=== PATIENT | female | born 1965 | race Caucasian/White ===

== ENCOUNTER 2018-11-16 18:51 | Inpatient (IN) | payer OTHER ==
[~2018-11-16] VITALS: Ht 170.2 cm; Wt 74.4 kg
[2018-11-16 21:32] LABS: BASOPHIL % 0.4 % (0-2); CALCIUM 7.9 mg/dL (8.5-10.1); CARBON DIOXIDE 26.7 mmol/L (21-32); CHLORIDE SERUM 97 mmol/L (98-107); CREATININE SERUM 0.8 mg/dL (0.6-1.0); GFR1 > 60 mL/min; GLUCOSE SERUM 77 mg/dL (74-106); PLATELET COUNT 199 x10^3mcL (130-400); POTASSIUM SERUM 4.3 mmol/L (3.5-5.1); SODIUM SERUM 133 mmol/L (136-145)
[2018-11-16 21:34] LABS: RED CELL DISTRIBUTION WIDTH 14.9 % (11.5-14.5)
[2018-11-16 21:36] LABS: ALBUMIN 3.7 g/dL (3.4-5.0); ALKALINE PHOSPHATASE 84 U/L (46-116); ALT/SGPT 20 U/L (14-59); AST/SGOT 19 U/L (15-37); BILIRUBIN TOTAL 0.14 mg/dL (0.20-1.00); TOTAL PROTEIN, SERUM 6.9 g/dL (6.4-8.2)
[2018-11-16 23:55] LABS: microscopic required? NO
[2018-11-17 00:03] LABS: urine erythrocyte NEGATIVE (NEGATIVE)
[2018-11-17] MEDS ORDERED: CARISOPRODOL350 MG PO (00:11)
[2018-11-17] MEDS ORDERED: ALPRAZOLAM0.5 M4 PO (00:12)
[2018-11-17] MEDS ORDERED: BACLOFEN5 MG PO (00:14)
[2018-11-17] MEDS ORDERED: SEROQUEL200 MG PO (00:21)
[2018-11-17] MEDS ORDERED: LEXAPRO20 MG PO (00:21)
[2018-11-17] MEDS ORDERED: METOPROLOL TART25 M1 PO (00:22)
[2018-11-17] MEDS ORDERED: AMBIEN5 MG PO (00:23)
[2018-11-17 00:48] VITALS: BP 116/64
[2018-11-17 00:55] VITALS: Ht 170.2 cm; Wt 74.4 kg
[2018-11-17 01:15] LABS: MAGNESIUM 1.8 mg/dL (1.8-2.4); PHOSPHOROUS 4.6 mg/dL (2.5-4.9)
[2018-11-17 01:35] LABS: CHOLESTEROL/HDL RATIO 5.7
[2018-11-17 06:27] VITALS: BP 102/62
[2018-11-17 06:53] LABS: BASOPHIL % 0.2 % (0-2); PLATELET COUNT 168 x10^3mcL (130-400)
[2018-11-17 07:28] LABS: CHLORIDE SERUM 101 mmol/L (98-107); CREATININE SERUM 0.7 mg/dL (0.6-1.0); GFR1 > 60 mL/min; GLUCOSE SERUM 73 mg/dL (74-106); MAGNESIUM 1.8 mg/dL (1.8-2.4); PHOSPHOROUS 3.9 mg/dL (2.5-4.9); SODIUM SERUM 132 mmol/L (136-145)
[2018-11-17 08:49] VITALS: BP 103/62
[2018-11-17 14:03] LABS: AMPHETAMINE QUAL UR NONE DETECTED (See below)
== END 2018-11-17 17:38 | disposition left against medical advice (07) | DRG 253 ==
LOC: ED 18:51 → DU 23:47
PROVIDERS: Emergency Medicine; ADMIT Internal Medicine
DX: K92.0 Hematemesis (principal); S09.8XXA Other specified injuries of head, initial encounter; E87.1 Hypo-osmolality and hyponatremia; Z86.74 Personal history of sudden cardiac arrest; F41.9 Anxiety disorder, unspecified; G47.00 Insomnia, unspecified; S52.592D Other fractures of lower end of left radius, subsequent encounter for closed fracture with routine healing; E78.5 Hyperlipidemia, unspecified; I10 Essential (primary) hypertension; K59.00 Constipation, unspecified; Z53.21 Procedure and treatment not carried out due to patient leaving prior to being seen by health care provider; D64.9 Anemia, unspecified; W01.0XXA Fall on same level from slipping, tripping and stumbling without subsequent striking against object, initial encounter; Y93.01 Activity, walking, marching and hiking; Z68.25 Body mass index [BMI] 25.0-25.9, adult; Z87.891 Personal history of nicotine dependence; Y92.018 Other place in single-family (private) house as the place of occurrence of the external cause; Y99.8 Other external cause status; Z90.49 Acquired absence of other specified parts of digestive tract; Z83.3 Family history of diabetes mellitus; Z82.49 Family history of ischemic heart disease and other diseases of the circulatory system
CPT/HCPCS: C9113; J2001; J2270; J7030; Q0092

== ENCOUNTER 2019-01-16 16:42 | Emergency (ER) | payer OTHER ==
[~2019-01-16] VITALS: Ht 170.2 cm; Wt 61.2 kg
[~2019-01-16 16:42] MED LIST: ALPRAZOLAM0.5 M4 PO; AMBIEN5 MG PO; BACLOFEN5 MG PO; CARISOPRODOL350 MG PO; LEXAPRO20 MG PO; METOPROLOL TART25 M1 PO; SEROQUEL200 MG PO
[2019-01-16 16:46] VITALS: Ht 170.2 cm; Wt 61.2 kg
[2019-01-16 17:34] LABS: BASOPHIL % 0.3 % (0-2); PLATELET COUNT 213 x10^3mcL (130-400); RED CELL DISTRIBUTION WIDTH 13.4 % (11.5-14.5)
[2019-01-16 17:41] LABS: CALCIUM 9.3 mg/dL (8.5-10.1); CARBON DIOXIDE 27.5 mmol/L (21-32); CHLORIDE SERUM 107 mmol/L (98-107); CREATININE SERUM 0.6 mg/dL (0.6-1.0); GFR1 > 60 mL/min; GLUCOSE SERUM 100 mg/dL (74-106); SODIUM SERUM 142 mmol/L (136-145)
[2019-01-16 17:46] LABS: ALBUMIN 3.7 g/dL (3.4-5.0); ALKALINE PHOSPHATASE 71 U/L (46-116); ALT/SGPT 29 U/L (14-59); AST/SGOT 13 U/L (15-37); BILIRUBIN TOTAL 0.14 mg/dL (0.20-1.00); LIPASE 327 IU/L (73-393); TOTAL PROTEIN, SERUM 6.7 g/dL (6.4-8.2)
[2019-01-16 18:40] VITALS: BP 120/75
== END 2019-01-16 19:59 | disposition home or self-care (01) ==
LOC: ED 16:42
PROVIDERS: Emergency Medicine
DX: R10.84 Generalized abdominal pain (principal); I10 Essential (primary) hypertension
CPT/HCPCS: J2270

== ENCOUNTER 2019-01-24 14:08 | Inpatient (IN) | payer OTHER ==
[~2019-01-24] VITALS: Ht 170.2 cm; Wt 66.0 kg
[2019-01-24 14:23] VITALS: Ht 170.2 cm; Wt 66.0 kg
--- NOTE | 2019-01-24 14:24 | NUR ---
PT BIBA TO ED FOR ALOC X3 WEEKS PER MOTHER AND HAS JUAN ACTING "ABNORMAL" X3 WEEKS. PER MEDIC PT LIVES AT HOME WITH MOTHER AND IS NOT AMBULATORY. PT DOES NOT STS SI OR HI AT THIS TIME. PT UNCOOPERATIVE AT THIS TIME, PLACED IN 4 POINT RESTRAINTS FOR SAFETY. PER PT SEEN TALKING TO SELF, YELLING "LEAVE ME ALONE! I DON'T WANT TO BE HERE!" PT CONNECTED TO FULL CM. MOTHER AT BEDSIDE.
--- NOTE | 2019-01-24 14:40 | NUR ---
ON ASSESSMENT BRUISES NOTED TO INSIDE OF LEFT UPPER ARM. BRUISES ALSO NOTED TO LEFT WRIST AND RIGHT FOREARM.
--- NOTE | 2019-01-24 14:42 | NUR ---
LAB AT BEDSIDE. PT AWAKE AND ALERT, CALM AND TALKING TO FAMILY AT BEDSIDE.
[2019-01-24 14:55] LABS: BASOPHIL % 0.4 % (0-2); PLATELET COUNT 253 x10^3mcL (130-400); RED CELL DISTRIBUTION WIDTH 12.7 % (11.5-14.5)
[2019-01-24 15:05] LABS: CALCIUM 9.3 mg/dL (8.5-10.1); CARBON DIOXIDE 25.7 mmol/L (21-32); CHLORIDE SERUM 104 mmol/L (98-107); CREATININE SERUM 0.7 mg/dL (0.6-1.0); GFR1 > 60 mL/min; GLUCOSE SERUM 106 mg/dL (74-106); POTASSIUM SERUM 3.6 mmol/L (3.5-5.1); SODIUM SERUM 140 mmol/L (136-145)
[2019-01-24 15:09] LABS: ALBUMIN 3.6 g/dL (3.4-5.0); ALKALINE PHOSPHATASE 96 U/L (46-116); ALT/SGPT 53 U/L (14-59); AST/SGOT 15 U/L (15-37); BILIRUBIN TOTAL 0.18 mg/dL (0.20-1.00); TOTAL PROTEIN, SERUM 7.4 g/dL (6.4-8.2)
--- NOTE | 2019-01-24 15:47 | NUR ---
SPOKE WITH PT COUSIN AND DAUGHTER. PER FAMILY PT HAS HAD AN OPIOID AND BENZODIAZAPINE ADDICTION X 30 YEARS AND HAS BEEN TO MANY DIFFERENT HOSPITALS IN THE LAST 30 DAYS. PER FAMILY PT IS "DETOXING FROM BENZOS AND OPIOIDS" X 1 MONTH AND HAS DONE SO UNDER NO MEDICAL SUPER VISION.
--- NOTE | 2019-01-24 17:44 | NUR ---
PT LAYING IN BED, AWAKE AND ALERT, PT ABLE TO HOLD CONVERSTION. PT STATES SHE "FEELS SO MUCH BETTER" AND DISCUSSED HER MEDICAL HISTORY. SHE REPORTS VISITING "A LOT OF HOSPITALS IN THE PAST" FOR SIEZURES AND STATES "I THINK I HAEVE THYROID CANCER BUT THE DOCTORS CANT FIGURE IT OUT AND THE INSURANCE COMPANIES GIVE THE RUN AROUND". PT IN FOUR POINT RESTRAINTS, PT HAS POSITIVE PULSES, COLOR, TEMPERATURE AND MOTION TO ALL FOUR EXTREMETIES.
--- NOTE | 2019-01-24 19:40 | NUR ---
MEDICATED PER EMAR. PT COOPERATIVE AT THIS TIME. MADE AWARE IF SHE REMAINS RELAXED AND COOPERATIVE THAT I WILL REMOVE THE RESTRAINTS. PT VERBALIZES UNDERSTANDING. WILL CONTINUE TO MONITOR. CURTAINS OPEN WIDE AND IN VIEW OF NURSING STATION. RESTRAINTS TO UPPER EXTREMITIES AND LEFT EXTREMITIES NOTED.
--- NOTE | 2019-01-24 20:11 | NUR ---
LEFT LOWER EXTREMITY RESTRAINT REMOVED. PT REMAINS COOPERATIVE AT THIS TIME. CURRENTLY RESTING WITH EYES CLOSED, RESPONDS TO VERBAL STIMULI. RESPIRATIONS EVEN AND UNLABORED. SAFETY PRECAUTIONS IN PLACE
--- NOTE | 2019-01-24 21:28 | NUR ---
PT REMOVED OFF OF ALL RESTRAINTS AT THIS TIME. REMAINS FREE FROM S/S OF DISTRESS, RESPIRATIONS EVEN AND UNLABORED. CURTAINS REMAIN OPEN AND PT IN VIEW OF NURSES STATION. SAFETY PRECAUTIONS IN PLACE
--- NOTE | 2019-01-24 22:32 | NUR ---
PT RESTING WITH EYES CLOSED, RESPONDS TO VERBAL STIMULI, RESPIRATIONS EVEN AND UNLABORED. SAFETY PRECAUTIONS IN PLACE
--- NOTE | 2019-01-24 23:22 | NUR ---
REPORT GIVEN TO STACY
--- NOTE | 2019-01-24 23:26 | NUR ---
PT RESTING AT BEDSIDE IN NAD. BREATHING E/U, BILATERAL CHEST RISE. BED AT LOWEST POSITION. CURTAINS DRAWN, PATIENT IN CLEAR VIEW OF NURSES AT STATION.
--- NOTE | 2019-01-25 01:49 | NUR ---
PT CONTINUES TO REST WITH EYES CLOSED, RESPIRATIONS EVEN AND UNLABORED. SAFETY PRECAUTIONS IN PLACE
--- NOTE | 2019-01-25 03:22 | NUR ---
STATUS REMAINS UNCHANGED. RESTING WITH EYES CLOSED. RESPIRATIONS EVEN AND UNLABORED. SAFETY PRECAUTIONS IN PLACE
--- NOTE | 2019-01-25 05:00 | NUR ---
PT AMBULATED TO AND FROM RESTROOM WITHOUT ANY ISSUES ENCOUNTERED. PT GIVEN MULTIPLE CUPS OF WATER. WILL CONTINUE TO MONITOR. SAFETY PRECAUTIONS IN PLACE
[2019-01-25 05:40] LABS: AMPHETAMINE QUAL UR NONE DETECTED (See below)
--- NOTE | 2019-01-25 06:34 | NUR ---
PT CONTINUES TO REST WITH EYES CLOSED. RESPIRATIONS EVEN AND UNLABORED. SAFETY PRECAUTIONS IN PLACE
--- NOTE | 2019-01-25 07:14 | NUR ---
REPORT GIVEN TO CELIA RN, ALL QUESTIONS AND CONCERNS WERE ADDRESSED.
--- NOTE | 2019-01-25 07:15 | NUR ---
RECEIVED AWAKE ALERT ORIENTED, ANSWERS QUESTIONS PROPERLY, COOPERATIVE,C/O GENERALIZED BODY ACHES AND STATED UNABLE TO MOVE EXTREMITIES WHILE MOVING EXTREMITIES,,DENIES SUICIDAL IDEATION,DENIES TAKING ANY DRUGS SINCE 4 MONTHS, FEELS HUNGRY,
--- NOTE | 2019-01-25 07:40 | NUR ---
HAD HER BREAKFAST AND TOLERATED DR AGUIAR BESIDES ANSWERING HER QUESTIONS AND PLAN OF TREATMENT INCLUDING TEL.PSYCH,,UNHAPPY INSISTING THAT SHE HAS PHYSICAL DISEASE NOT MENTALLY, PT MOVES ALL EXTREMITIES,
--- NOTE | 2019-01-25 09:21 | NUR ---
INTERVIEWD BY PSYCHAITRIST VIA TEL,COM, ANXIOUS RESTLESS MEDICATED WITH ZYPREXIA AND ATIVAN
--- NOTE | 2019-01-25 10:08 | NUR ---
PT STATED SHE WANTS TO VOMIT , WHEN BASIN GIVEN SHE THREW IT AWAY AND ASKING FOR RELAXING MEDS, MEDICATED
--- NOTE | 2019-01-25 13:09 | NUR ---
FULL OF COMPLAINTS, HAD HER LUNCH AND TOLERATED, WALKING STEADY,STATED NOTHING HELPS NEED 2 TABS LITTLE,DR AGUIAR SPOKE TO PT MULTIPLE TIMES
--- NOTE | 2019-01-25 14:27 | NUR ---
PT RESTLESS, CONTINUES TO GET OUT OF BED. PT ESCORTED TO RESTROOM BY SECURITY. PT RETURNED BACK TO ROOM AT THIS TIME.
--- NOTE | 2019-01-25 15:02 | NUR ---
PT AWAKE ALERT, RESP E/U, NO DISTRESS. REMAINS VERY TALKATIVE.
--- NOTE | 2019-01-25 15:58 | NUR ---
PT READJUSTED IN BED FOR COMFORT. PT IN RIGHT LATERAL POSITION AT THIS TIME, RESP E/U, NO DISTRESS.
--- NOTE | 2019-01-25 16:48 | NUR ---
PT SEEN WITH EVEN CHEST RISE AND FALL; NO DISTRESS. DAUGHTER AND MD AT BEDSIDE AT THIS DISCUSSING PT'S POC.
--- NOTE | 2019-01-25 17:40 | NUR ---
PT IN GURNEY IN POSITION OF COMOFRT, RESP E/U, NO PAIN NOTED.
--- NOTE | 2019-01-25 18:42 | NUR ---
PT IN LEFT LATERAL POSITION, RESP E/U, NO DISTRESS. IN VIEW OF NURSES STATION.
--- NOTE | 2019-01-25 19:18 | NUR ---
REPORT GIVEN TO TRACIE PITTMAN TO ASSUME CARE.
--- NOTE | 2019-01-25 20:16 | NUR ---
PT LYING ON RT SIDE WITH EYES CLOSED WITH NO SIGNS OF DISTRESS AT THIS TIME.
--- NOTE | 2019-01-25 21:13 | NUR ---
PT'S MOTHER AT BEDSIDE. PT CALM AND COOPERATIVE WITH CARE. PT REFUSED AMBIEN AT THIS TIME.
--- NOTE | 2019-01-25 23:32 | NUR ---
PT RESTING IN BED WITH EYES CLOSED, BREATHS EVEN AND UNLABORED WITH NO SIGNS OF DISTRESS AT THIS TIME.
--- NOTE | 2019-01-26 01:10 | NUR ---
PT RESTING WITH EYES CLOSED WITH NO SIGNS OF DISTRESS AT THIS TIME.
--- NOTE | 2019-01-26 01:35 | NUR ---
REPORT RECIEVED FROM SUNDAR HODGES TO ASSUME PT CARE. PT RESTING IN A POSITION OF COMFORT AT THIS TIME, RESP EVEN AND UNLABORED, CHEST RISE AND FALL NOTED.
[2019-01-26 04:29] LABS: BASOPHIL % 0.5 % (0-2); PLATELET COUNT 225 x10^3mcL (130-400); RED CELL DISTRIBUTION WIDTH 12.4 % (11.5-14.5)
--- NOTE | 2019-01-26 04:33 | NUR ---
RECEIVED PT RESTING WITH EYES CLOSED, RESPIRATIONS EVEN AND UNLABORED. RESPONDS TO VERBAL STIMULI. SAFETY PRECAUTIONS IN PLACE
[2019-01-26 05:19] LABS: CALCIUM 9.1 mg/dL (8.5-10.1); CARBON DIOXIDE 24.5 mmol/L (21-32); CHLORIDE SERUM 107 mmol/L (98-107); CREATININE SERUM 0.6 mg/dL (0.6-1.0); GFR1 > 60 mL/min; GLUCOSE SERUM 95 mg/dL (74-106); MAGNESIUM 1.9 mg/dL (1.8-2.4); POTASSIUM SERUM 3.9 mmol/L (3.5-5.1); SODIUM SERUM 143 mmol/L (136-145)
--- NOTE | 2019-01-26 05:23 | NUR ---
will endorsed to in coming shift to continue to look for placement .
--- NOTE | 2019-01-26 06:24 | NUR ---
RESTING WITH EYES CLOSED, RESPIRATIONS EVEN AND UNLABORED. SAFETY PRECAUTIONS IN PLACE
--- NOTE | 2019-01-26 07:18 | NUR ---
AT BEDSIDE PT IS AAOX4, RESPS E/U, PT DENIES PAIN, PT CALM AND COOPERATIVE WHILE EATING BREAKFAST.
--- NOTE | 2019-01-26 08:27 | NUR ---
PT RESTING IN POSITION OF COMFORT. PT ATE 100% OF BREAKFAST. PT CALM AND COOPERATIVE.
--- NOTE | 2019-01-26 09:25 | NUR ---
PT MEDICATED PER MD ORDERS. PT CRYING BUT EASILY DISTRACTABLE. STS "I DONT WANT TO BE HERE" PT CALMED DOWN, AND STOPPED CRYING. PT AMBULATED TO RESTROOM WITH STEADY GAIT. I ACCOMPANIED PT FOR SAFETEY. PT BACK IN BED IN POSITION OF COMFORT. PT IN DIRECT VIEW OF NURSES STATION.
--- NOTE | 2019-01-26 10:21 | NUR ---
PT SLEEPING, EASILY AROUSABLE, BED IN LOWEST POSITION. PT IN DIRECT VIEW OF NURSES STATION.
--- NOTE | 2019-01-26 11:27 | NUR ---
PT WOKE UP AND REQUESTED TO GO TO RESTROOM. I ACCOMPANIED PT. PT CALM AND COOPERATIVE. PT AMBULATED WITH STEADY GAIT AND NO ASSIST. PT BACK IN BED RESTING IN A POSITION OF COMFORT.
--- NOTE | 2019-01-26 11:57 | NUR ---
PT'S COUSIN IS AT BEDSIDE. DR. AGUIAR AT BEDSIDE WELL. DR. AGUIAR UPDATING FAMILY MEMEBER.
--- NOTE | 2019-01-26 11:58 | NUR ---
SPOKE TO DENNIS FROM [facility]
--- NOTE | 2019-01-26 13:39 | NUR ---
PT RESTING IN POSITION OF COMFORT. PT'S COUSIN AT BEDSIDE. BOTH ARE WATCHING A MOVIE. PT CALM AND COOPERATIVE. PT IS AAOX4, RESPS E/U SKIN IS PINK, WARM AND DRY.
--- NOTE | 2019-01-26 13:54 | NUR ---
PT Massiel/AX4 SPEAKING IN CLEAR SENTENCES, SISTER AT BEDSIDE
--- NOTE | 2019-01-26 14:25 | NUR ---
REPORT GIVEN TO DOMINIC FROM MED [facility] TO ASSUME CARE FOR PT.
--- NOTE | 2019-01-26 14:41 | NUR ---
PER PT "I DON'T TAKE ANY MEDS REGULARLY"
[2019-01-26 15:53] VITALS: BP 123/75
--- NOTE | 2019-01-26 16:21 | NUR ---
AT 1505 - RECEIVED PATIENT FROM ER NURSE. SETTLED IN ROOM, ORIENTED TO SURROUNDINGS. PATIENT ADMITTED WITH ALOC, ON 5150 HOLD. PATIENT IS AWAKE, ALERT AND ORIENTED TO PERSON, PLACE AND TIME. HISTORY OBTAINED FROM PATIENT AND PATIENT'S COUSIN WHO IS AT BEDSIDE. INITIAL ASSESSMENT COMPLETED. PATIENT C/O GENERALZIED BODY PAIN. AT 1540 - MEDICATED WITH TYLANOL PER EMAR. PATIENT IN ROOM WITH 1:1 SITTER. WATCHING MUSIC VIDEO ON TABLET.
[2019-01-26 16:45] VITALS: BP 120/72
--- NOTE | 2019-01-26 18:09 | NUR ---
PATIENT APPEARS CALM. C/O PERSISTANT PAIN. HAS NOW RECEIVED SOMA SCHEDULED. AMBULATES TO BATHROOM FOR TOILET NEEDS. 1:1 SITTER IN ROOM WITH PATIENT. WILL ENDORSE CARE TO NIGHT NURSE.
--- NOTE | 2019-01-26 19:30 | NUR ---
RECEIVED PT IN BED AAOX3.LUNG SOUND CTA. NO DISTRESS NOTED.DENIES ANY PAIN AT THIS TIME.IV SITE PATENT AND INTACT. BED IN LWOEST POSITION,CALL LIGHT WITHIN REACH.SITTER AT BEDSIDE FOR SAFETY.
[2019-01-26 21:09] VITALS: BP 108/67
--- NOTE | 2019-01-26 21:13 | NUR ---
Pt needs re evaluation for 5150.will awaiting for the new 5150 to be faxed in order to find palcement , Kassandra HODGES aware.
--- NOTE | 2019-01-27 04:57 | NUR ---
PT APPEARS TO BE SLEEPING.NO SOB NOTED. NO S/S OF PAIN. SITTER AT BEDSIDE FOR SAFETY. BED IN LOWEST POSITION,CALL LIGHT WITHIN REACH. WILL CONTINUE TO MONITOR.
[2019-01-27 05:55] VITALS: BP 104/65
--- NOTE | 2019-01-27 07:14 | NUR ---
CARE ENDORSED TO DAY NURSE
--- NOTE | 2019-01-27 07:22 | NUR ---
RECEIVED REPORT FROM DISTRICT WILDLIFE MANAGER NURSE AT THIS TIME. PATIENT RESTING COMFORTABLY IN BED. NO APPARENT DISTRESS OR DISCOMFORT NOTED. BREATHING EVEN AND UNLABORED. NO RESPIRATORY DISTRESS NOTED. PATIENT DENIES CHEST PAIN AT THIS TIME. IV PATENT AND INTACT. ALL QUESTIONS AND CONCERNS ADDRESSED. ALL NEEDS ATTENDED TO. SITTER AT BEDSIDE TO PROMOTE PATIENT SAFETY. WILL CONTINUE TO MONITOR
--- NOTE | 2019-01-27 09:41 | NUR ---
ALL MORNING MEDICATIONS ADMINISTERED. PATIENT TOLERATED MEDICATIONS WELL. NO APPARENT DISTRESS NOTED. NO ADVERSE EFFECTS NOTED. ALL NEEDS ATTENDED TO. WILL CONTINUE TO MONITOR
[2019-01-27 10:48] VITALS: BP 115/56
--- NOTE | 2019-01-27 12:07 | NUR ---
PATIENT C/O GENERALIZED BODY ACHE AT THIS TIME. TYLENOL PRN ADMINSITERED AT THIS TIME. PATIENT TOLERATED WELL. ALL NEEDS ATTENDED TO. WILL CONTINUE TO MONITOR
--- NOTE | 2019-01-27 13:25 | NUR ---
PATIENT SITTING UP IN BED EATING LUNCH AT THIS TIME. PATIENT TOLERATING DIET WELL. NO APPARENT DISTRESS OR DISCOMFORT NOTED. ALL NEEDS ATTENDED TO. SITTER AT BEDSIDE TO PROMOTE PATIENT SAFETY. WILL CONTINUE TO MONITOR
--- NOTE | 2019-01-27 14:12 | NUR ---
Contacted the following facilities, no beds available and no eta: [facility]
[2019-01-27 17:19] VITALS: BP 102/72
--- NOTE | 2019-01-27 17:59 | NUR ---
PATIENT SITTING UP ON SIDE OF BED EATING DINNER AT THIS TIME. PATIENT TOLERATING DIET WELL. VISITOR AT BEDSIDE. NO APPARENT DISTRESS OR DISCOMFORT NOTED. ALL NEEDS ATTENDED TO. WILL CONTINUE TO MONITOR
--- NOTE | 2019-01-27 18:51 | NUR ---
PATIENT RESTING COMFORTABLY IN BED AT THIS TIME. NO APPARENT DISTRESS OR DISCOMFORT NOTED. IV PATENT AND INTACT. ALL QUESTIONS AND CONCERNS ADDRESSED. SAFETY PRECAUTIONS MAINTAINED. ALL NEEDS ATTENDED TO. SITTER AT BEDSIDE TO PROMOTE PATIENT SAFETY. WILL ENDORSE ALL CARE TO TURNER AND FORMER AUTOMATIC NURSE
--- NOTE | 2019-01-27 20:07 | NUR ---
Awake and verbally responsive. No respiratory distress noted on room air. Denies pain. Denies n/v. On 5150 hold. sitter at the bedside. Safety maintained. CAlm at this time. Dangled.
[2019-01-27 21:23] VITALS: BP 112/76
--- NOTE | 2019-01-28 04:20 | NUR ---
Afebrile. No significant change in condition noted. Remained on 5150 hold. In no apparent distress.
--- NOTE | 2019-01-28 07:40 | NUR ---
PATIENT STATED THAT SHE DOES NOT NEED TO BE WATCHED AND STARTED TO READ ALL OF HER NOTES REGUARDING HER MEDICAL PROBLEM, SHE SAID SHE HAS EPILEPSY, ALOC, LOW THYROID, SHE HAS TO TAKE CARE OF HER DISABILITY, SHE DOES NOT NEED 5150. REORIENTED TO SITUATION. PLAN OF CARE DISCUSSED. REGULAR BREAKFAST PROVIDED. SITTER 1:1 AT BEDSIDE FOR 5150HOLD. REFUSED IV ACCESS. CALL LIGHT PLACED WITHIN EASY REACH. SIDERAILS UP X2.
--- NOTE | 2019-01-28 09:19 | NUR ---
Recieved call from Miles at [facility]. They had a bed for the patient, but cannot take the patient after all. Per Miles, the patient is on the medical floor and it would be an EMTALA violation. Also they would not get paid by the insurance due to the violation. The bed has been canceled.
--- NOTE | 2019-01-28 10:00 | NUR ---
AGREED TO HAVE IV CATHETER INSERTION. IV CATHETER#22 ATTEMPTED X2 TO RFA WITH GOOD BLD RETURNED AND FLUSHED WELL.
--- NOTE | 2019-01-28 10:17 | NUR ---
ATIVAN 1MG IVP GIVEN FOR ANXIETY. STATED I JUST WANT TO BE ABLE TO SLEEP.
--- NOTE | 2019-01-28 13:12 | NUR ---
Intervention/RD recommendations 1. Continue regular diet as ordered and as tolerated. If PO intake <75% by following assessment, will add ONS for supplementation.
--- NOTE | 2019-01-28 13:12 | NUR ---
Initial Nutrition Assessment Dx: AMS, 5150, gravely disabled PMHx: HTN, questionable history of colon CA, MA per BROTHEL KEEPER, psychosis PSHx: Appendectomy Labs: (01/26) Na 143, K 3.9, BG 95, BUN 17, Cr 0.6, WBC 4.9, H/H 11L/32L Meds: Ambien, Ativan, Benadryl, Lioresal, Lopressor, Seroquel, Soma, Tylenol, Xanax, Zofran, Zyprexa Diet: Regular PO Intake: (01/28) B: 100% Ht: 67" (170 cm) Wt: 144# (65.7 kg) BMI: 22.7 (WNL) IBW: 135# %IBW: 107% UBW: unable to recall Age: 53 y/o female Food Allergies: NKFA Skin: Intact Robin: 21 Edema: None GI: Last BM x none since admission x1 day Per H&P, pt. admitted with agitation and gravely disabled with no other symptoms. Per family, pt. believes she has colon CA and seizures, but was worked up by other hospitals with no findings. Medically cleared, however, in-pt. psych placement continues to be pending at this time per bed huddle discussion. Pt. unable to answer some nutrition related questions. Tolerating diet without reported GI distress per RN notes and has good appetite. Denies recent weight loss at this time. No reported side effects from psychotropic medication regimen affecting appetite or nutritional status. T: Unintentional weight loss -10# x 1 month Problem with: No c/o N/V/D/C Problems with: Chewing: N Swallowing: N Current appetite: Excellent Recent wt change: None %wt change: N/A Vitamin/Supplement use: None Special diet at home: Regular Physical activity: None Education: No diet education provided during visit. Estimated Nutritional Needs Based on actual body weight 65.7 kg: Energy: 3233-6482 kcal/d (23-25 kcal/kg- adult maintenance) Protein: 66-78 g/d (1.0-1.2 g/kg)-maintenance and preservation of lean body mass Fluid: 7786-9358 ml/d (1 ml/kcal-fluid balance) or per doctor Nutrition Diagnosis 1.Predicted food-medication interaction r/t current medication regimen AEB pt. on multiple psychotropic medications that could potentially cause side effects negatively affecting nutritional status, including weight gain/loss, GI distress, and taste alterations. Intervention/RD recommendations 1. Continue regular diet as ordered and as tolerated. If PO intake <75% by following assessment, will add ONS for supplementation. Monitor/Evaluate Goal: PO intake at least 75% of estimated needs Monitor: PO intake, Labs, GI function, diet tolerance F/U in 7 days as low risk (4/3)
--- NOTE | 2019-01-28 13:30 | NUR ---
SEEN STANDING IN FRONT OF THE DOOR ATTEMPTED TO LEAVE THE ROOM STATED "I'M THE 4TH IN LINE FOR NEURO SURGEON I HAVE TO TALK TO CAPPER MACHINE OPERATOR SOMEBODY AT THE LOBBY TOLD ME THAT I'M THE 4TH IN THE LINE" NOTED FRUSTATED AND CRYING STATED " I'M NOT TRYING TO HURT MYSELF" REORITENTED TO SITUATION, EMOTIONAL SUPPORT GIVEN, PATIENT AGREED TO WALK BACK TO BED. SITTER 1:1 AT BEDSIDE.
--- NOTE | 2019-01-28 17:43 | NUR ---
APPEARS MORE CALM TALKING TO HER COUSIN AT BEDSIDE. NO ANY DISTRESS NOTED.
[2019-01-28 18:05] VITALS: BP 102/55
--- NOTE | 2019-01-28 19:32 | NUR ---
RECEIVED PT FROM PREVIOUS SHIFT. PT AWAKE/ALERT/ORIENTED. DENIES PAIN. DENIES SOB ON RA. IV PATENT TO RFA, SALINE LOCKED. SITTER AT BEDSIDE. CALL LIGHT WITHIN REACH, BED IN LOW POSITION. WILL CONTINUE TO MONITOR.
--- NOTE | 2019-01-28 19:43 | NUR ---
Rollow up calls were made to the following contracted facilities for psych bed placement. [facility], spoke with Alicia. No beds available tonight. [facility], spoke with Ajith. No beds available tonight. [facility], spoke with Carlos. No beds available tonight. [facility], spoke with Lois. Packet was faxed at [facility] request. [facility] will call Call Center or [facility] if they can accommodate the patient. [facility], spoke with Alicia. No beds available tonight. Will call the unit when Call Center recieves any new information.
[2019-01-28 21:12] VITALS: BP 159/83
--- NOTE | 2019-01-28 21:45 | NUR ---
PT REFUSING MEDICATION UNTIL 2300.
--- NOTE | 2019-01-28 22:04 | NUR ---
PT STATES SHE WILL TAKE MEDICATIONS NOW INSTEAD OF AT 2300 PREVIOUSLY REQUESTED. PT MEDICATED AT THIS TIME. WILL CONTINUE TO MONITOR.
--- NOTE | 2019-01-28 23:53 | NUR ---
PT REQUESTING MANUEL. DR GILLESPIE D/C'D MANUEL TODAY. DR HARRELL MADE AWARE.
--- NOTE | 2019-01-29 02:24 | NUR ---
PT RESTING IN NO ACUTE DISTRESS. RR EVEN AND UNLABORED. CALL LIGHT WITHIN REACH, BED IN LOW POSITION. WILL CONTINUE TO MONITOR.
--- NOTE | 2019-01-29 03:41 | NUR ---
PT REQUESTING TYLENOL FOR BODY ACHES. TYLENOL PROVIDED PRN PER EMAR.
--- NOTE | 2019-01-29 04:28 | NUR ---
PT REQUESTING PAIN MEDICATION FOR CONTINUES BODY ACHES. DR HARRELL MADE AWARE. WILL OCNTINUE TO MONITOR.
--- NOTE | 2019-01-29 05:53 | NUR ---
NO ACUTE CHANGES THROUGHOUT SHIFT. PT RESTING IN NO DISTRESS. RR EVEN AND UNLABORED. WILL ENDORSE CARE TO ONCOMING SHIFT
[2019-01-29 06:06] VITALS: BP 106/69
--- NOTE | 2019-01-29 07:05 | NUR ---
SEEN IN BED RESTING WITH EYES CLOSED. BREATHING E/U ON ROOM AIR. NO ANY DISTRESS NOTED. ON 5150 HOLD, SITTER 1:1 AT BEDSIDE. S/L TO RFA INTACT. NOTED SIDERAILS UP X2, CALL LIGHT PLACED WITHIN EASY REACH.
[2019-01-29 08:57] LABS: BASOPHIL % 0.2 % (0-2); PLATELET COUNT 270 x10^3mcL (130-400); RED CELL DISTRIBUTION WIDTH 12.8 % (11.5-14.5)
[2019-01-29 09:08] VITALS: BP 103/69
--- NOTE | 2019-01-29 09:08 | NUR ---
SEEN WALKING ON THE HALLWAY ACCOMPANIED BY SITTER. NO ANY DISTRESS NOTED.
[2019-01-29 09:24] LABS: CALCIUM 9.1 mg/dL (8.5-10.1); CARBON DIOXIDE 27.9 mmol/L (21-32); CHLORIDE SERUM 107 mmol/L (98-107); CREATININE SERUM 0.7 mg/dL (0.6-1.0); GFR1 > 60 mL/min; GLUCOSE SERUM 105 mg/dL (74-106); POTASSIUM SERUM 4.1 mmol/L (3.5-5.1); SODIUM SERUM 143 mmol/L (136-145)
--- NOTE | 2019-01-29 12:00 | NUR ---
SEEN PATIENT CRYING STATED SHE IS NOT FEELING WELL, STATED THE ROOM IS SPINNING. V/S CHECKED STABLE. PATIENT STATED SHE PROBABLY NEEDS BLOOD TRANSFUSION. EMOTIONAL SUPPORT GIVEN, KEPT PATIENT COMFORTABLE. PATIENT REQUESTED ATIVAN FOR RELAXATION.
--- NOTE | 2019-01-29 12:39 | NUR ---
ATIVAN 1MG IVP GIVEN AT THIS TIME AFTER PATIENT FINISHED WITH HER LUNCH.
--- NOTE | 2019-01-29 14:00 | NUR ---
SEEN RESTING WITH EYES CLOSED. SITTER 1:1 AT BEDSIDE.
--- NOTE | 2019-01-29 14:29 | NUR ---
CALLED DOCTOR JOSE MIGUEL REGUARDING INCORRECT PATIENT'S DATE OF ON [address] (TELEPHONE# [phone]). SPOKE TO DOCTOR JOSE MIGUEL'S CENTER PUNCH OPERATOR STATED HE IS NOT IN THE OFFICE TODAY, LEFT MESSAGE. GERHARD CAMPOS MADE AWARE.
--- NOTE | 2019-01-29 14:53 | NUR ---
ASSISTED TO BATHROOM, VOIDED, ASSISTED BACK, PATIENT STARTED CRYING STATED SHE CAN NOT SEE STATED" ARE YOU SURE I DON'T NEED BLOOD TRANSFUSION" V/S CHECKED STABLE. TRACIE MARX AT BEDSIDE.
[2019-01-29 16:04] VITALS: BP 113/70
--- NOTE | 2019-01-29 16:40 | NUR ---
SEEN BY DOCTOR GILLESPIE AT BEDSIDE. PATIENT AND PATIENT'S DAUGHTER VERBALIZED UNDERSTANDING OF CURRENT SITUATION AND PLAN OF CARE.
--- NOTE | 2019-01-29 17:27 | NUR ---
DAUGHTER STILL AT BEDSIDE. PATIENT APPEARS CALM AND PLEASANT.
--- NOTE | 2019-01-29 18:49 | NUR ---
HAD BOWEL MOVEMENT X1, STATED HARD DARK STOOL. MILK OF MAGNESIA GIVEN.
--- NOTE | 2019-01-29 20:00 | NUR ---
RECEIVED PT IN BED, WITH SITTER AT THE BEDSIDE FOR SAFETY. ALERT AND ORIENTED, ABLE TO VERBALIZE NEEDS. PT REMAINS ON 5150 HOLD. DENIES HEADACHE/DIZZINESS. RESP. EVEN AND UNLABORED. ON ROOM AIR, NO ACUTE DISTRESS NOTED.AFEBRILE AND VITAL SIGNS STABLE. NO TELE, DENIES CP OR ANY DISCOMFORT AT THIS TIME. HL TO RFA, INTACT AND PATENT. VOIDING FREELY. AMBULATES. WILL CONTINUE TO MONITOR.
--- NOTE | 2019-01-30 01:03 | NUR ---
RESTLESS, APPEARS ANXIOUS, PT REQUESTING MED, MEDICATED WITH ATIVAN 1MG IV ORDERED.SITTER AT THE BEDSIDE FOR SAFETY. WILL CONTINUE TO MONITOR.
--- NOTE | 2019-01-30 03:58 | NUR ---
EYES CLOSED, APPEARS ASLEEP, EASILY AROUSABLE. RESP. EVEN AND UNLABORED. SITTER AT BEDSIDE FOR SAFETY. WILL CONTINUE TO MONITOR.
[2019-01-30 04:03] VITALS: BP 111/60
--- NOTE | 2019-01-30 06:11 | NUR ---
AFEBRILE AND VITAL SIGNS STABLE. RESP. EVEN AND UNLABORED. ON ROOM AIR, NO ACUTE DISTRESS NOTED. DOOZING OFF AND ON AT THIS TIME. REMAINS ON 5150 HOLD, SITTER AT THE BEDSIDE FOR SAFETY. NO COMPLAINTS NOTED AT THIS TIME. VOIDING FREELY. KEPT COMFORTABLE. WILL CONTINUE TO MONITOR.
--- NOTE | 2019-01-30 07:10 | NUR ---
RECEIVED PATIENT AWAKE AND ALERT AND ORIENTED WITH A SITTER AT THE BEDSIDE.HL ON THE RT FOREARM INTACT.
[2019-01-30 07:51] VITALS: BP 119/71
--- NOTE | 2019-01-30 09:00 | NUR ---
PATIENT SAYING THAT SHE'S TAKING THYROID MEDS.AND WANTS HER RESULTS OF HER T3 BE FAX FROM DR. THAPA'S OFFICE HER DOCTOR TO HERE. VICTORINO HENNESSY MADE AWARE.
--- NOTE | 2019-01-30 12:30 | NUR ---
ASKING MEDS. FOR ANXIETY AND ATIVAN GIVEN.
--- NOTE | 2019-01-30 13:12 | NUR ---
HER SISTER CALLED AND TRANSFER THE CALL TO HER SISTER.
--- NOTE | 2019-01-30 14:30 | NUR ---
REPORT GIVEN DONATO HODGES FOR CONTINUE CARE.
--- NOTE | 2019-01-30 15:10 | NUR ---
REPORT RECEIVED FROM
--- NOTE | 2019-01-30 15:45 | NUR ---
PT AWAKE AND ALERT. SITTING EDGE OF BED WITH HER NOTES. DAUGHTER IN ROOM WITH PATIENT. BREATH SOUNDS CLEAR NYLA, NO RESP DISTRESS NOTED. 02 SAT 98% ON RA AND HR 70/MIN. PT DENIES ANY PAIN. ANGIE WELL AND AMBULATORY. PT ABD SOFT WITH AUDIBLE BSX4 QUADS. PT STATED VOIDING WITHOUT PROBLEM. HL ON RT F/A, NO REDNESS NOTED. PT SHOWING NURSE NOTES ABOUT HER NEEDING HER THYROID CHECK, HER T3, T4, AND STATED CORRELATED WITH PROBLEM WITH HER THYROID. PT STATED DR THAPA CAME AND SAW HIM AND TOLD HIM ABOUT HER THYROID ISSUES. PT DENIES ANY PAIN AT THIS TIME. CALL LIGHT WITHIN REACHED. BED IN LOW POSITION AND LOCKED. PT HAS A SITTER , 5150 PATIENT.
--- NOTE | 2019-01-30 18:04 | NUR ---
PT DENIES AN PAIN. HL ON RT FA, FLUSHES WELL AND PATENT. DAUGHTER KARAN AT BEDSIDE VISITING AND VERY SUPPORTIVE. SITTER AT BEDSIDE. CALL LIGHT WITHIN REACHED.
--- NOTE | 2019-01-30 19:30 | NUR ---
RECIEVED PT SITTING UP IN BED. ALERT AND ORIENTED. ABLE TO VERBALIZE NEEDS. DENIES HEADACHE/DIZZINESS AT THIS TIME. ANXIOUS AT TIMES. PT REMAINS ON 5150 HOLD, SITTER AT BED SIDE FOR SAFETY. RR EVEN AND UNLABORED. NO ACUTE DISTRESS NOTED. HEP LOCK TO RIGHT FA, INTACT AND PATENT. AMBULATES WITH ASSISTANCE. NO COMPLAINTS NOTED AT THIS TIME. CALL LIGHT WITHIN REACH. WILL CONINTUE TO MONITOR.
[2019-01-30 21:31] VITALS: BP 122/75
--- NOTE | 2019-01-31 00:03 | NUR ---
Called [facility] [place] and spoke with patients RN, requested for renewed 5150 to be faxed over to continue the process of bed placement.
--- NOTE | 2019-01-31 01:07 | NUR ---
PT EYES CLOSED, APPEARS ASLEEP. EASILY AROUSABLE. SITTER AT BED SIDE FOR SAFETY. RR EVEN AND UNLABORED NO ACUTE DISTRESS. WILL CONTINUE TO MONITOR.
--- NOTE | 2019-01-31 02:35 | NUR ---
PT AWAKE, COMPLAINING OF NOT BEING ABLE TO GO BACK TO SLEEP. BENADRYL PO GIVEN, PER EMAR. CALL LIGHT WITHIN REACH. SITTER CONTINUES TO BE AT BESIDE FOR SAFETY. WILL CONTINUE TO MONITOR.
--- NOTE | 2019-01-31 05:20 | NUR ---
AFEBRILE AND VITAL SIGNS STABLE. RESP. EVEN AND UNLABORED. ON ROOM AIR, NO ACUTE DISTRESS NOTED. DUE MEDS GIVEN ORDERED, SOFÍA. WELL. REMAINS ON 5150 HOLD, SITTER AT THE BEDSIDE FOR SAFETY. NO COMPLAINTS NOTED AT THIS TIME. DENIES ANY DISCOMFORT. WILL CONTINUE TO MONITOR.
[2019-01-31 06:29] VITALS: BP 120/69
--- NOTE | 2019-01-31 07:30 | NUR ---
PT IS ALERT AND ORIENTED X 4. PLEASANT AND COOPERATIVE. HEPLOCK RIGHT FOREARM. 51/50 RENEWED. WITH 1:1 SITTER FOR SAFEY. AMBULATES. NOTED PT IS TALKATIVE. WILL MONITOR.
[2019-01-31 09:43] VITALS: BP 107/84
--- NOTE | 2019-01-31 09:55 | NUR ---
PT WAS VERY ANXIOUS AND CONCERNED ABOUT HERSELF, THAT SHE HAS THIS FOLLOWING PROBLEM AND DISEASES. SHE SAID SHE HAS SEIZURE PROBLEMS, SHE SAID SHE HAS PROBLEM WITH THYROID. SHE WANTED TO HAVE PRESCRIPTION OF THYROID, BLOATED BIG STOMACH. HER STOMACH SHOWED BIG BECAUSE SHE PAUSES IT UP AND TRIED TO HYPERVENTILATE. PT WAS TOLD TO RELAX AND BREATH SLOWLY AND DEEP. PT WAS MEDICATED WITH ATIVAN PO TO RELAX. WILL MONITOR.
--- NOTE | 2019-01-31 12:04 | NUR ---
RECEIVED THE PT FROM MASOUD MATT RN, PT IS ALERT AND ORIENTED. SITTER AT BEDSIDE. AMBULATE BY HER SELF. WILL CONTINUE TO MONITOR THE PT.
--- NOTE | 2019-01-31 14:31 | NUR ---
Contcated the follwoing facilities and no beds availablem no eta. [facility], [facility]
--- NOTE | 2019-01-31 15:04 | NUR ---
PT REPORT HER STOMECH IS DISTENTED. CALLED GERHARD GLEASON, NEW ORDER RECEIVED AND CARRIED OUT.
--- NOTE | 2019-01-31 18:28 | NUR ---
PT IS A/O X4, VERBAL RESPONSIVE, DENY ANY PAIN AT THIS MOMENT. DENY ANY RESPIRATORY DISTRESS, IV AT RIGHT FA, NO LEAKING, NO INFILTRATION, SITTER AT BEDSITE, ALL ADLS ASSIST,ALL NEED MET, CALL LIGHT IN REACH, WILL CONTINUE TO MONITOR.
--- NOTE | 2019-01-31 19:50 | NUR ---
SHIFT REASSESSMENT DONE.PATIENT ALERT AND ORIENTED.BREATHING EASY.AMBULATORY.SITTER AT BEDSIDE FOR SAFETY.MEDSUR PATIENT.NO EDEMA NOTED ON EXT.REPORT SAYS NEED AMBIEN TONIGHT.CALL LIGHT IN REACH.
--- NOTE | 2019-01-31 21:37 | NUR ---
ALL SCHEDULE MEDS GIVEN,ALSO PRN FOR SLEEP.DAUGHTER WA HERE EARLIER,SUPPORTIVE OF CARE.SITTER AT BEDSIDE FOR SAFETY.
[2019-01-31 21:47] VITALS: BP 135/82
--- NOTE | 2019-02-01 02:15 | NUR ---
PATIENT SOUND ASLEEP.SITTER AT BEDSIDE FOR SAFETY.
[2019-02-01 03:33] VITALS: BP 107/63
--- NOTE | 2019-02-01 04:32 | NUR ---
UP AND ABOUT BRP,VOIDING,NO BM REPORTED BY SITTER.EVEN HAD MOM YESTERDAY.
--- NOTE | 2019-02-01 06:14 | NUR ---
PATIENT C/O HEPLOCK HURTING,CHECKED AT ONCE.FLUSHES EASY,NO REDNESS.PATIENT SITTER AT BEDSIDE FOR SAFETY.WILL ENDORSE TO NEXT SHIFT.
--- NOTE | 2019-02-01 07:09 | NUR ---
RECEIVED PT FROM SHIFT NURSE A/OX4. APPEARS IN NO ACUTE DISTRESS. UNDER CLOSE OBSERVATION. HEPLOCK PATENT. SIDE RAILS UPX2 AND CALL LIGHT WITHIN REACH. WILL CONTINUE TO MONITOR.
--- NOTE | 2019-02-01 08:35 | NUR ---
PT C/O OF INDIGESTION. GAVE [place]LANTA ORDERED. WILL CONTINUE TO MONITOR.
--- NOTE | 2019-02-01 10:16 | NUR ---
PT EXPRESSED RELIEF OF INDIGESTION. CALL LIGHT WITHIN REACH. UNDER CLOSE OBSERVATION. WILL CONTINUE TO MONITOR.
--- NOTE | 2019-02-01 11:00 | NUR ---
PT WAS SEEN BY DR GILLESPIE AND NO LONGER ON 5150 HOLD.
--- NOTE | 2019-02-01 16:12 | NUR ---
PT STATED SHES FEELING ANXIOUS. GAVE ATIVAN ORDERED. WILL CONTINUE TO MONITOR.
[2019-02-01] MEDS ORDERED: NORCO1 TA2 PO (16:23)
[2019-02-01] MEDS ORDERED: XANAX0.5 MG PO (16:24)
[2019-02-01] MEDS ORDERED: BACLOFEN10 MG PO (16:25)
[2019-02-01] MEDS ORDERED: CARISOPRODOL350 MG PO (16:26)
[2019-02-01] MEDS ORDERED: LEXAPRO10 MG PO (16:28)
[2019-02-01] MEDS ORDERED: KEFLEX500 M1 PO (16:28)
[2019-02-01] MEDS ORDERED: METOPROLOL SUCC25 M2 PO (16:30)
[2019-02-01] MEDS ORDERED: POTASSIUM GLUC500 MG PO (16:30)
[2019-02-01] MEDS ORDERED: SEROQUEL100 MG PO (16:30)
[2019-02-01] MEDS ORDERED: ZANTAC 300300 MG PO (16:31)
[2019-02-01] MEDS ORDERED: AMBIEN5 MG PO (16:31)
[2019-02-01] MEDS ORDERED: STOOL SOFTENER250 M2 PO (16:32)
[2019-02-01] MEDS ORDERED: GENERLAC10 GM/15 M PO (16:33)
[2019-02-01] MEDS ORDERED: BENZTROPINE MESY1 MG PO (16:33)
[2019-02-01 16:50] VITALS: BP 111/72
--- NOTE | 2019-02-01 17:18 | NUR ---
PT SITTING ON EDGE OF BED TALKING WITH FAMILY MEMBER. NO ACUTE DISTRESS NOTED. CALL LIGHT WITHIN REACH. WILL CONTINUE TO MONITOR
--- NOTE | 2019-02-01 17:19 | NUR ---
PT WAS SEEN BY DR. GILLESPIE. NO LONGER ON 5150 HOLD.
--- NOTE | 2019-02-01 18:18 | NUR ---
PT SITTING ON BED EATING DINNER. NO ACUTE DISTRESS NOTED. FAMIY MEMBER AT BEDSIDE. HEPLOCK PATENT. CALL LIGHT WITHIN REACH. WILL BE ENDORSED.
--- NOTE | 2019-02-01 19:50 | NUR ---
PT. AWAKE, ALERT, ORIENTED X4. SITTING UP IN BED , MOTHER NOW AT BED SIDE. BREATH SOUNDS CLEAR THROUGHOUT LUNG RAZO, RESP. EVEN, UNLABORED. NO SOB NOTED. NO EDEMA NOTED TO EXTREMITIES. PEDAL PULSES STRONG BLE. ABD. SOFT AND FLAT, BOWEL SOUNDS ACTIVE. DENIES ABD. PAIN. IV SITE INTACT. CALL LIGHT WITHIN REACH.
--- NOTE | 2019-02-01 20:22 | NUR ---
PT. HAD SOME OF HER OWN HOME MEDICATION ON THE TABLE TOP, LEVOTHYROXINE, VITAMIN B12 INJECT VIAL AND ALSO IRON TAB. PT. STATED THAT SHE TOOK HER LEVOTHYROXINE TODAY AT 1600 TODAY. PT. STATED THAT THE NURSE FROM DAY SHIFT WAS NOT AWARE. PATIENT MADE AWARE THAT SHE SHOULD NOT TAKE ANY OF HER HOME MEDICATION BECAUSE THEY WERE NOT ORDERED BY THE DOCTOR, NOR WERE THEY VERIFIED BY PHARMACY. PT. ALSO MADE AWARE THAT AT TIMES, SOME MEDICATIONS MAY HAVE ALSO BEEN GIVEN BY THE NURSE , THUS SHE , THE PATIENT, WOULD BE TAKING A DOUBLE DOSE BY SELF MEDICATIN. ALL THREE BOTTLES OF MEDICATIONS TAKEN DOWN TO PHARMACY FOR STORAGE. PT.'S MOTHER MADE AWARE THAT NO NEW ORDERS FOR THE THREE MEDICATIONS WERE OBTAINED AT THIS TIME FROM THE DOCTOR.
[2019-02-01 20:33] VITALS: BP 107/70
--- NOTE | 2019-02-02 01:53 | NUR ---
PT. STATED THAT SHE CANNOT SLEEP. REQUESTING AMBIEN FOR SLEEP. DR. HARRELL MADE AWARE. PRN AMBIEN ORDERED AND GIVEN. WILL MONITOR.
--- NOTE | 2019-02-02 02:58 | NUR ---
Awaiting for call back from Aydee HODGES , to see if pt still meets criteria for psych placement.
--- NOTE | 2019-02-02 03:41 | NUR ---
Pt ariela no longer need to be placed at any [facility] facilities, per Aydee HODGES
--- NOTE | 2019-02-02 06:12 | NUR ---
PT. STILL ASLEEP AT THIS MOMENT. RECEIVED ONE TIME DOSE OF AMBIEN PER REQUEST.IV SITE INTACT. CALL LIGHT WITHIN REACH. WILL ENDORSE PT. CARE TO INCOMING NURSE.
[2019-02-02 06:16] VITALS: BP 121/64
--- NOTE | 2019-02-02 07:30 | NUR ---
RECEIVED PATIENT IN BED AWAKE ALERT ABLE TO VERBALIZE NEEDS WELL. PATIENT IS VERY TALKATIVE, REPEATS SELF FREQUENTLY. AMBUALATES AD GUILHERME. DENIES ANY PAINI OR DISCOMFORT. HL RT F/A FLUSHED WELL. WILL CONTINUE TO MONITOR.
[2019-02-02 08:33] VITALS: BP 115/67
[2019-02-02] MEDS ORDERED: LEXAPRO10 MG PO (11:42)
[2019-02-02] MEDS ORDERED: SEROQUEL100 MG PO (11:43)
[2019-02-02 12:08] VITALS: BP 115/67
[2019-02-02] MEDS ORDERED: ZYPREXA5 M1 PO (12:42)
--- NOTE | 2019-02-02 12:53 | NUR ---
PT BEING DISCHARGED TO HOME. AWAKE, ALERT, ORIENTED X4. NO S/S OF ACUTE DISTRESS. NO COMPLAINT OF PAIN. NO SOB ON ROOM AIR. CALM/COOPERATIVE. DISCHARGE EDUCATION PROVIDED TO PATIENT, INSTRUCTED TO FOLLOW UP WITH PCP WITHIN ONE WEEK. VERBALIZED UNDERSTANDING. HOME MEDS GIVEN BACK TO PATIENT. PRESCRIPTION PROVIDED TO PATIENT. IV REMOVED FROM RFA, CATHETER IN TACT. PRESSURE APPLIED. SITE WNL. NO TELE. NO CHEST PAIN. RESOURCES GIVEN TO PATIENT BY DIVER PUMPER BRI FOR OUTPATIENT PSYCH FACILITIES. PT VERBALIZED UNDERSTANDING. ACCOMPANIED BY MOTHER. AMBULATORY WITH FULL ROM, GAIT STEADY. BELONGINGS WITH PATIENT.
--- NOTE | 2019-02-02 13:17 | NUR ---
PT TAKEN TO DISCHARGE LOBBY BY [facility]. AMBULATORY WITH FULL ROM, GAIT STEADY. AWAKE, ALERT, ORIENTED X4. BELONGINGS WITH PATIENT. ACCOMPANIED BY MOTHER. PRESCRIPTION/HOME MEDS WITH PATIENT.
== END 2019-02-02 13:23 | disposition home or self-care (01) | DRG 751 ==
LOC: ED 14:08 → MU 01-25 11:50
PROVIDERS: Emergency Medicine; ADMIT Internal Medicine
DX: F29 Unspecified psychosis not due to a substance or known physiological condition (principal); F22 Delusional disorders; R56.9 Unspecified convulsions; Z86.74 Personal history of sudden cardiac arrest; I10 Essential (primary) hypertension; R45.87 Impulsiveness; R45.1 Restlessness and agitation; Z85.038 Personal history of other malignant neoplasm of large intestine; Z90.49 Acquired absence of other specified parts of digestive tract; Z73.6 Limitation of activities due to disability
CPT/HCPCS: G0480; J1200; J1630; J2060; J3486; Q0163

== ENCOUNTER 2019-10-11 22:23 | Inpatient (IN) | payer OTHER ==
[~2019-10-11] VITALS: Ht 170.2 cm; Wt 81.3 kg
[~2019-10-11 22:23] MED LIST changes: +BACLOFEN10 MG PO; +BENZTROPINE MESY1 MG PO; +GENERLAC10 GM/15 M PO; +KEFLEX500 M1 PO; +LEXAPRO10 MG PO; +METOPROLOL SUCC25 M2 PO; +NORCO1 TA2 PO; +POTASSIUM GLUC500 MG PO; +SEROQUEL100 MG PO; +STOOL SOFTENER250 M2 PO; +XANAX0.5 MG PO; +ZANTAC 300300 MG PO; +ZYPREXA5 M1 PO
--- NOTE | 2019-10-11 23:19 | NUR ---
LAB AT BEDSIDE
--- NOTE | 2019-10-11 23:44 | NUR ---
PT MEDICATED PER MD ORDERS. PT TOLERATED WELL. WILL CONTINUE TO MONITOR.
[2019-10-11 23:50] LABS: BASOPHIL % 0.1 % (0-2); PLATELET COUNT 214 x10^3mcL (130-400); RED CELL DISTRIBUTION WIDTH 14.7 % (11.5-14.5)
[2019-10-12] VITALS (7 sets, daily range): BP systolic 92–145; BP diastolic 56–85
[2019-10-12 00:07] LABS: CALCIUM 9.2 mg/dL (8.5-10.1); CARBON DIOXIDE 28.3 mmol/L (21-32); CHLORIDE SERUM 104 mmol/L (98-107); CREATININE SERUM 0.7 mg/dL (0.6-1.0); GFR1 > 60 mL/min; GLUCOSE SERUM 113 mg/dL (74-106); POTASSIUM SERUM 3.3 mmol/L (3.5-5.1); SODIUM SERUM 142 mmol/L (136-145)
[2019-10-12 00:21] LABS: FREE T4 0.71 ng/dL (0.76-1.46)
--- NOTE | 2019-10-12 00:40 | NUR ---
DR. MCDONOUGH AT BEDSIDE TO DISCUSS PLAN OF CARE.
--- NOTE | 2019-10-12 00:58 | NUR ---
ATTEMPTED TO HAVE PT SIT UP IN BED. PT STATED SHE WAS UNABLE TO SIT UP DUE TO BEING TOO WEAK.
--- NOTE | 2019-10-12 01:15 | NUR ---
EDUCATED PT THAT WE WOULD NEED URINE SAMPLE. PT STATES "WELL MAGDALENA BEEN GETTING INCONTINENT AND I CANT TELL WHEN I GO". PT ALSO STATES "I HAVE NO FEELING DOWN THERE". DR MCDONOUGH MADE AWARE.
--- NOTE | 2019-10-12 01:20 | NUR ---
ACCOMPANIED DR MCDONOUGH FOR RECTAL EXAM.
--- NOTE | 2019-10-12 01:22 | NUR ---
PER DR MCDONOUGH, PT HAS DECREASED RECTAL TONE BUT MAINTAINS SENSATION.
--- NOTE | 2019-10-12 01:34 | NUR ---
DR MCDONOUGH AT BEDSIDE FOR BLADDER SCAN. PER DR MCDONOUGH PT HAS APPROX [phone] CC OF URINE IN BLADDER AT THIS TIME.
[2019-10-12 02:24] LABS: microscopic required? NO
[2019-10-12 02:40] LABS: CHOLESTEROL/HDL RATIO 4.4; MAGNESIUM 1.7 mg/dL (1.8-2.4); PHOSPHOROUS 4.1 mg/dL (2.5-4.9)
--- NOTE | 2019-10-12 02:45 | NUR ---
REPORT GIVEN TO AYDEN HODGES AT EXT [id number]
[2019-10-12 02:54] LABS: UA SPECIFIC GRAVITY <=1.005 (1.005-1.035); urine erythrocyte NEGATIVE (NEGATIVE)
--- NOTE | 2019-10-12 03:00 | NUR ---
Pt. received via danuta with RN and tech acccompanying pt. from ER. Pt. family at bedside upon arrival to the floor. Pt. currently is awake and alert, oriented x4, able to make needs known, able to follow commands and has no c/o of H/a at this time. Pt. came in to the ER d/t pt. reported that she has been having difficulty urinating with retention and lost sensation in the vaginal and rectal area. Pt. admitted w/ weakness & backpain at this time. Pt. has had a h(x) of PTSD, mood disorder, spinal stenosis s/p anterior cervical fusion and discectomy at C5-6. Patient was also admitted here in January 2019, for unspecified psychosis and she was on 5150 hold. The patient, at that time, had extreme paranoia, extreme agitation, high anxiety and impulsive behavior, poor self-care, not showering, not eating. Pt. mentiioned she had cardiac arrest after complicated appendectomy at [facility]. Pt. 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 Pt. states that she ahs h(x) of becoming unconscious at stores when having migraines and the last time she remembered this happening was around 6 months ago. Pt. also states she has had quadruplets via C -Section and experienced blood bloss (10L) before (no correlation to either surgery was mentioned upon assessment). Pt. lung sounds are CTA bilateral upper lobes and diminshed to the BLL. Pt. has c/o of SOB, but is currenly anxious O2 Sat at 97% when VS were taken. Pt. has no c/o chest pain at this time and is a MS pt. Pt. bowel sounds active, pt. states that she has trouble feeling and tasting what she eats, but does not state having trouble eating. Just states "she never feels satisfied, full or hungry" when eating. Pt. denies any unexplained weight loss within the past 2-3 months. Pt. does not have trouble swallowing as per pt. Pt. Bowel sounds active in BUQ and hyperactive in the BLQ. Pulses are moderate to touch in both BUE and BLE. No edema noted in all extremities. Pt. skin warm to touch and good cap refill. Pt. is not ambulatory at this time, will place an air mattress before end of shift. Educated pt. on reason why we want to place air mattress. Pt. safety in check with call light placed within reach, pt. educated on when and how to use call light system, bed set at lowest position, will continue to monitor pt. at this time.
[2019-10-12 03:06] LABS: AMPHETAMINE QUAL UR NONE DETECTED (See below)
--- NOTE | 2019-10-12 03:06 | NUR ---
PT TRANSFERED TO TELE AT THIS TIME IN NAD. PT AND PARENT VERBALIZED UNDERSTANDING OF PLAN OF CARE. PT TRANSFERED VIA GURNEY WITH CHRIS EMT AND MYSELF. PT TRANSFERED TO TELE BED WITH ASSISTANCE BY TELE STAFF. AYDEN HODGES AT BEDSIDE TO ASSUME CARE OF PT. PT A&0X4, SPEAKING FULL CLEAR SENTENCES. PT BREATHING EVEN AND UNLABORED. PT MOTHER AT BEDSIDE.
--- NOTE | 2019-10-12 03:45 | NUR ---
Paged Dr. Zambrano to inform her that pt. requesting for her night doses of Trazadone, Serroquel, and Ambien since she didn't receive it downstairs when she came to the ER for her generalized weakness. Will continue to monitor pt.
--- NOTE | 2019-10-12 04:38 | NUR ---
Pt. was able to take the Medications that were scheduled for the night dose at this time with no issue, will continue to monitor pt. at this time.
--- NOTE | 2019-10-12 05:33 | NUR ---
Pt. currently resting in bed at this time. Pt. has no c/o of c/p, sob, pain, or discomfort at this time. Pt. meds that she said she takes at night was ordered and given as prescribed by . otherwise, pt. stable, safety in check with call light placed within reach, pt. educated on when and how to use call light system, bed set at lowest position, will continue to monitor pt. at this time and endorse to next shift RN.
[2019-10-12 07:21] LABS: BASOPHIL % 0.3 % (0-2); PLATELET COUNT 182 x10^3mcL (130-400); RED CELL DISTRIBUTION WIDTH 14.8 % (11.5-14.5)
[2019-10-12 07:29] LABS: CALCIUM 8.6 mg/dL (8.5-10.1); CARBON DIOXIDE 26.2 mmol/L (21-32); CHLORIDE SERUM 108 mmol/L (98-107); CREATININE SERUM 0.8 mg/dL (0.6-1.0); GFR1 > 60 mL/min; GLUCOSE SERUM 104 mg/dL (74-106); MAGNESIUM 1.9 mg/dL (1.8-2.4); PHOSPHOROUS 4.1 mg/dL (2.5-4.9); POTASSIUM SERUM 3.8 mmol/L (3.5-5.1); SODIUM SERUM 143 mmol/L (136-145)
--- NOTE | 2019-10-12 07:50 | NUR ---
RECEIVED PT FROM TRUST CLERK RN. Massiel/JEANNIE. MED SURG. DENIES CHEST PAIN/PRESSURE. RESPIRATIONS EQUAL AND UNLABORED RA. DENIES SOB AT THIS TIME. PT STATES SHE HAS EPISODES OF SOB WHEN ANXIOUS. PT C/O OF GENERALIZED WEAKNESS AND NUMBNESS FROM NECK DOWN TO LEGS. PT STATES SENSATION TO BOTH HAND AND LEGS ARE EQUAL. ABLE TO FOLLOW COMMANDS. HAND DOG GROOMER STRONG BILATERALLY. PT C/O FEELING IF SHES FLOATING AND HER BODY IS FLOATING. FAMILY AT BEDSIDE. WILL CONTINUE TO MONITOR. CALL LIGHT IN REACH. BED IN LOWEST POSITION.
--- NOTE | 2019-10-12 08:24 | NUR ---
CHASTITY FROM CT AT BEDSIDE, TAKING PT OFF FLOOR FOR CT OF LUMBAR SPINE.
--- NOTE | 2019-10-12 09:28 | NUR ---
PT BACK FOR CT. PT STATES SHE FEELS MORE WEAK THAN WHEN SHE CAME INTO THE HOSPITAL. PT STATES "IT FEELS LIKE MY BODY IS FLOATING. I FEEL LIKE I HAVE LESS SENSATION IN MY HANDS THAN NORMAL." GIVEN PO MEDS. TOLERATED WELL. IV SALINE LOCKED TO RAC. NO REDNESS OR SWELLING NOTED. MOM AT BEDSIDE. WILL CONTINUE TO MONITOR. CALL LIGHT IN REACH. BED IN LOWEST POSITION.
--- NOTE | 2019-10-12 09:45 | NUR ---
CALLED SOC TELE NEURO. TELE NEURO CONSULT WAS INITIATED. ALL QUESTIONS AND CONCERNS ADDRESSED. LOPEZ MODEL IN ROOM WITH PT. TEST FOR CAMERA, SOUNDS, MICROPHONE DONE AND PASSED. AWAITING CALL BACK.
--- NOTE | 2019-10-12 10:36 | NUR ---
RECEIVED CALL FROM DR. RUVALCABA FROM TELE NEURO CONSULT. DR. RUVALCABA GIVEN RESULTS FROM PT CT OF CERVAL SPINE AND CT LUMBAR SPINE WELL CT OF HEAD. DR. RUVALCABA MADE AWARE OF PT MEDICAL HISTORY INCLUDING RECENT CERVICAL SURGERY. DR. RUVALCABA ALSO MADE AWARE PT RECENTLY HAD AN MRI OUTPATIENT. PER DR. RUVALCABA WILL LEAVE RECOMMMENDATIONS IN PT, AND WILL WAIT TO BE UPDATED ON PT RESULTS FROM MRI. DR. TY MADE AWARE. PER DR. TY MEDICAL STUDENT IS OBTAINING INFORMATION FROM PT TO OBTAIN MRI RESULTS.
--- NOTE | 2019-10-12 11:26 | NUR ---
PAGED DR. TY TO CLARIFY ORDER TO OBTAIN MEDICAL RECORDERS FROM DR. GUILLEN. AWAITING CALL BACK.
--- NOTE | 2019-10-12 13:10 | NUR ---
PT C/O WORSENING TO WEAKNESS. PT STATES "I CANT FEEL MY HANDS ANYMORE. I CANT EVEN HOLD ANYTHING." PT WAS ABLE TO GRAB CUP OF TEA. PT STATES "I'M SCARED ITS GETTING WORSE." PT ASKING TO HAVE ATIVAN. PAGED DR. TY. INFORMED DR. TY OT IS C/O WORSENING NUMBNESS AND WEAKNESS. PER DR. TY WILL AWAITING MRI RESULTS. PER DR. TY PT IS RECEIVING HOME MEDICATION OF XANAX. WILL CONTINUE TO MONITOR. CALL LIGHT IN REACH. BED IN LOWEST POSITION.
--- NOTE | 2019-10-12 16:32 | NUR ---
PHYSICAL THERAPY NOTE PATIENT REFUSED EVAL AND TREATMENT TODAY. PATIENT EDUCATED WITH BENEFITS FOR TREATMENT TO INCREASE OVERALL FUNCTIONAL MOBILITY. MOTHER PRESENT AND ALSO EDUCATED WITH BENEFITS. UNABLE TO ENCOURAGE. "I AM TOO WEAK AND NUMB. I CAN WALK OR EVEN HOLD A CUP." PATIENT HAS INCREASE ANXIETY. PATIENT HAS OBSERVED BY NURSING HOLDING A CUP AND LEAD HANDLER ASSISTED PATIENT TO AMBULATE TO BATHROOM WITHOUT AD. PATIENT REQUEST TO SEE MD PRIOR TO ANY THERAPY. WILL ATTEMPT TREATMENT AND EVAL NEXT VISIT. NURSING AWARE.
--- NOTE | 2019-10-12 19:35 | NUR ---
RECEIVED PT FROM DAY SHIFT RN. PT AAOX4, DENIES ELLIS/DIZZINESS. BREATHING EVEN AND UNLABORED ON RA WITH NO SOB NOTED. NECK BRACE IN PLACE. PT REPORTS UNABLE TO LIFT CUP WHILE HOLDING CUP IN HAND. IV RAC. PT UNCOOPERATIVE WITH ASSESMENT AT THIS TIME. MOTHER AT BEDSIDE. CALL BUTTON WITHIN REACH. SAFETY PRECAUTIONS IN PLACE. WILL CONTINUE TO MONITOR.
--- NOTE | 2019-10-13 03:21 | NUR ---
ROUNDS MADE. PT RESTING. NO SIGNS OF ACUTE DISTRESS NOTED. CALL BUTTON WITHIN REACH. SAFETY PRECAUTIONS IN PLACE. WILL CONTINUE TO MONITOR.
[2019-10-13 05:29] VITALS: BP 108/64
[2019-10-13 06:34] LABS: BASOPHIL % 0.3 % (0-2); PLATELET COUNT 193 x10^3mcL (130-400)
--- NOTE | 2019-10-13 06:35 | NUR ---
PT SLEPT MOST OF THE NIGHT WITH NO SIGNS OF DISTRESS. IV PATENT, SL. PT AMBULATORY WITH BRP. PT ON RA WITH NO SOB NOTED. PT MEDICATED PER EMAR. MOTHER AT BEDSIDE. CALL BUTTON WITHIN REACH. SAFETY PRECAUTIONS IN PLACE. WILL CONTINUE TO MONITOR AND ENDORSE CARE TO DAY SHIFT RN.
[2019-10-13 06:40] LABS: RED CELL DISTRIBUTION WIDTH 14.6 % (11.5-14.5)
[2019-10-13 06:58] LABS: CALCIUM 8.9 mg/dL (8.5-10.1); CHLORIDE SERUM 107 mmol/L (98-107); CREATININE SERUM 0.7 mg/dL (0.6-1.0); GFR1 > 60 mL/min; GLUCOSE SERUM 98 mg/dL (74-106); MAGNESIUM 1.8 mg/dL (1.8-2.4); PHOSPHOROUS 4.2 mg/dL (2.5-4.9); POTASSIUM SERUM 4.2 mmol/L (3.5-5.1); SODIUM SERUM 143 mmol/L (136-145)
--- NOTE | 2019-10-13 07:31 | NUR ---
PT RESTING. NO SIGNS OF DISTRESS NOTED. CALL BUTTON WITHIN REACH. SAFETY PRECAUTIONS IN PLACE. ENDORSED CARE TO DAY SHIFT RN, ALL QUESTIONS ADDRESSED.
--- NOTE | 2019-10-13 07:50 | NUR ---
RECEIVED PT FROM NETWORK SYSTEMS ADMINISTRATOR RN. PT SLEEPING COMFORTABLY. EASILY AROUSABLE. A/OX4. PT STATES "I CANT FEEL ANYTHING. I FEEL LIKE MY NECK IS FLOATING. IT JUST KEEPS GETTING WORSE." PT STATES "I CANT HOLD ANYTHING ANYMORE." PT ABLE TO HOLD CUP IN HER HAND. NO ACUTE RESP DISTRESS NOTED. PT HAS EPISODES OF ANXIETY. ENCOURAGED DEEP BREATHING AND RELAXATION TECHNIQUES. MOTHER AT BEDSIDE. NECK BRACE IN PLACE. WILL CONTINUE TO MONITOR. CALL LIGHT IN REACH. BED IN LOWEST POSITION.
[2019-10-13 08:36] VITALS: BP 119/79
--- NOTE | 2019-10-13 09:07 | NUR ---
PT CRYING HYSTERICALLY. PT EXHIBITING LABORED SHALLOW BREATHING. ENCOURAGED PT TO TAKE DEEP SLOW BREATHS. PT STATES "ITS JUST GETTING WORSE, SINCE MAGDALENA BEEN HERE EVERYTHING HAS JUST GOTTEN WORSE." PT STATES "I CANT EVEN PICK ANYTHING UP." PT HOLDING GLASS SHES STATING SHE CANT GRAB ANYTHING. PT ASKING FOR ANXIETY MEDICATION. MEDICATED PER EMAR. MOM AT BEDSIDE. EXPLAINED TO PT TIAGO LINING CUTTER IS AWARE OF PT CONCERNS AND WILL DISCUSS TEST RESULTS AND PLAN OF CARE WITH THE PT. WILL CONTINUE TO MONITOR. CALL LIGHT IN REACH. BED IN LOWEST POSITION.
[2019-10-13 12:12] VITALS: BP 110/65
--- NOTE | 2019-10-13 14:34 | NUR ---
PT SITTING UP IN BED. NO ACUTE RESP DISTRESS NOTED ON RA. PT C/O PAIN TO NECK 10/10 SHARP. PT ASKING FOR NORCO. MEDICATED PER EMAR. BACTROBAN OINTMENT APPLIED TO BILATERAL NARES. HIBICLENS TOPICAL APPLIED TO WHOLE BODY. PT STATES EVERY THING IS GETTING WORSE. I DONT THINK I CAN WALK OR HOLD ANYTHING. PT ABLE TO AMBULATE TO THE BATHROOM UNASSISTED. EXPLAINED TO PT TIAGO SKIDDER RUNNER WILL SPEAK WITH PT TOMORROW ABOUT PLAN OF CARE. PT VERBALIZED UNDERSTANDING. WILL CONTINUE TO MONITOR. CALL LIGHT IN REACH. BED IN LOWEST POSITION.
[2019-10-13 16:09] VITALS: BP 115/78
--- NOTE | 2019-10-13 19:00 | NUR ---
PT DAUGHTER KARAN BROUGHT IN PT HOME MEDICATION SOMA, LORAZEPAM AND ATORVASTATIN. PT ASKING FOR MEDICATION. SPOKE WITH TIAGO GRAVEL INSPECTOR PER TIAGO KEEP MEDICATION IN PHARMACY SAFE FOR PT DUE TO MEDICATION BEING CONTROLLED SUBSTANCE. PT UPSET CALLING DAUGHTER TO PICK MEDICATION UP. EXPLAINED TO PT MEDICATION WILL BE KEPT IN SAFE WITH PHARMACY AND WILL BE PROVIDED UPON DISCHARGE. PT AGREEABLE. MEDICATION PUT IN PHARMACY SAFE WITH PHARMACIST CODY.
--- NOTE | 2019-10-13 19:30 | NUR ---
RECEIVED REPORT FROM JO ANN HODGES. PT AAOX4 AND FOLLOWS COMMANDS. PT DENIES HEADACHE OR DIZZINESS AT THIS TIME. PT IS VERY ANXIOUS AND IS WORRYING THAT HER CONDITION IS WORSENING. PT STATES "I FEEL THAT I HAVE NO SENSORY PRECEPTION OF MY HANDS AND UNABLE TO HOLD MY UTENSILS AND EAT." PT HAND SMOKING PIPE REPAIRER ARE STRONG AND EQUAL. NO DEFICIT NOTED AT THIS TIME. REASSURED PT THAT THE DOCTORS ARE AWARE OF HER CONDITION AND THAT WE ARE PROVIDING HER WITH THE BES CARE POSSIBLE AT THIS TIME. PT CALMED DOWN AFTER. PT IS MED-SURG AND DENIES CHEST PAIN OR PRESSURE AT THIS TIME. PT PULSES ARE PALPABLE AND CAP REFILL <3 SEC. PT LUNG SOUNDS CTA ON RA AND BREATHING IS EVEN AND UNLABORED. PT DENIES SOB OR RESPIRATORY DISTRESS AT THIS TIME. PT ABD SOFT AND NONDISTENDED. PT BOWEL SOUNDS ACTIVE X4. PT DENIES N/V/D AT THIS TIME. PT VOIDS FREELY. PT AMBULATES, BUT HAS GENERALIZED WEAKNESS. PT IV IS PATENT, INTACT, AND SALINE-LOCKED AT THIS TIME. CALL LIGHT WITHIN REACH. BED IN LOWEST POSITION. SIDE RAILS X2 UP. WILL CONTINUE TO MONITOR.
[2019-10-13 20:26] VITALS: BP 113/73
--- NOTE | 2019-10-14 00:02 | NUR ---
PT SLEEPING. BREATHING EVEN AND UNLABORED. NO ACUTE DISTRESS NOTED. CALL LIGHT WITHIN REACH. BED IN LOWEST POSITION. SIDE RAILS X2 UP. WILL CONTINUE TO MONITOR.
--- NOTE | 2019-10-14 00:55 | NUR ---
RECEIVED REPORT FROM JO ANN HODGES. PT AAOX4 AND FOLLOWS COMMANDS. PT DENIES HEADACHE OR DIZZINESS AT THIS TIME. PT IS VERY ANXIOUS AND IS WORRYING THAT HER CONDITION IS WORSENING. PT STATES "I FEEL THAT I HAVE NO SENSORY PRECEPTION OF MY HANDS AND UNABLE TO HOLD MY UTENSILS AND EAT." PT HAND CASH MANAGEMENT ASSOCIATE ARE STRONG AND EQUAL. NO DEFICIT NOTED AT THIS TIME. REASSURED PT THAT THE DOCTORS ARE AWARE OF HER CONDITION AND THAT WE ARE PROVIDING HER WITH THE BEST CARE POSSIBLE AT THIS TIME. PT CALMED DOWN AFTER. PT IS MED-SURG AND DENIES CHEST PAIN OR PRESSURE AT THIS TIME. PT PULSES ARE PALPABLE AND CAP REFILL <3 SEC. PT LUNG SOUNDS CTA ON RA AND BREATHING IS EVEN AND UNLABORED. PT DENIES SOB OR RESPIRATORY DISTRESS AT THIS TIME. PT ABD SOFT AND NONDISTENDED. PT BOWEL SOUNDS ACTIVE X4. PT DENIES N/V/D AT THIS TIME. PT VOIDS FREELY. PT AMBULATES, BUT HAS GENERALIZED WEAKNESS. PT IV IS PATENT, INTACT, AND SALINE-LOCKED AT THIS TIME. CALL LIGHT WITHIN REACH. BED IN LOWEST POSITION. SIDE RAILS X2 UP. WILL CONTINUE TO MONITOR.
--- NOTE | 2019-10-14 01:29 | NUR ---
PT SLEEPING. BREATHING EVEN AND UNLABORED. NO ACUTE DISTRESS NOTED. CALL LIGHT WITHIN REACH. BED IN LOWEST POSITION. SIDE RAILS X2 UP. WILL CONTINUE TO MONITOR.
--- NOTE | 2019-10-14 03:57 | NUR ---
PT SLEEPING. BREATHING EVEN AND UNLABORED. NO ACUTE DISTRESS NOTED. CALL LIGHT WITHIN REACH. BED IN LOWEST POSITION. SIDE RAILS X2 UP. WILL CONTINUE TO MONITOR.
[2019-10-14 05:27] VITALS: BP 116/72
--- NOTE | 2019-10-14 06:20 | NUR ---
PT SLEPT THROUGHOUT MOST OF THE NIGHT. NO ACUTE DISTRESS NOTED. PT COMPLIED WITH NURSING CARE THROUGHOUT THE SHIFT. COMFORT AND SAFETY MEASURES MAINTAINED. ALL NEEDS AND CONCERNS ADDRESSED. IV INTACT, PATENT, AND SALINE LOCKED. CALL LIGHT WITHIN REACH. BED IN LOWEST POSITION. SIDE RAILS X2 UP. WILL CONTINUE TO MONITOR. WILL ENDORSE CARE TO DAY SHIFT NURSE.
--- NOTE | 2019-10-14 07:15 | NUR ---
RECEIVED PATIENT. AWAKE AND STABLE. NO ACUTE RESPIRATORY DISTRESS NOTED. PATIENT STATES PAIN TO LEFT SIDE OF NECK, PATIENT NOTED TO HAVE SOFT CERVICAL COLLAR THAT SHE BROUGHT WITH HER FROM HOME. PATIENT HAS HX OF CERVICAL-VERTEBRAL FUSION SURGERY. COMPLAINING OF GENERALIZED BODY NUMBNESS AND DECREASED SENSATION OVER THE PAST FEW DAYS AND THAT IT IS PROGRESSING. PER RIGHT OF WAY CUTTER RN, DOCTOR IS AWARE OF THESE COMPLAINTS AND REASSURED PATIENT THAT HER CASE IS BEING STUDIED. PATIENT NOTED TO HAVE ANXIETY AND EFFECTIVELY CALM HER DOWN BY REASSURANCE. RAC IV IS INTACT. SALINE LOCK. NO INFILTRATION NOTED. PULSES ARE PALPABLE AND PRESENT. CAP REFILL WNL. SAFETY PRECAUTION IN PLACE. CALL LIGHT WITHIN REACH. WILL CONTINUE TO MONITOR.
[2019-10-14 07:20] VITALS: Ht 170.2 cm; Wt 81.3 kg
--- NOTE | 2019-10-14 07:40 | NUR ---
PATIENT COMPLAINING ON PAIN TO NECK 5/10 PAIN AND ANXIOUSNESS. ATIVAN 1MG PO AND NORCO PO GIVEN PRESCRIBED. WILL CONTINUE TO MONITOR.
[2019-10-14 08:38] VITALS: BP 105/63
--- NOTE | 2019-10-14 09:30 | NUR ---
PATIENT IN BED, STABLE. PATIENT HAVING THE SAME SYMPTOMS AND COMPLAINS THAT IT IS PROGRESSING. PER PATIENT, PSYCHIATRIST SPOKE WITH HER ABOUT POSSIBLE SNF PLACEMENT. TIAGO PRODUCTION MACHINE OPERATOR AWARE. NO ACUTE DISTRESS NOTED AT THIS TIME. NO C/O PAIN. ASSISTED PATIENT WITH R DEVELOPER TO AMBULATE TO THE RESTROOM. GENERALIZED WEAKNESS NOTED WITH MILD UNSTEADY GAIT. FALL RISK PRECAUTION REMAINS ON PLACE. IV TO RAC INTACT, NO INFILTRATION NOTED. SAFETY PRECAUTION IN PLACE. CALL LIGHT WITHIN REACH. WILL CONTINUE TO MONITOR.
--- NOTE | 2019-10-14 12:30 | NUR ---
PATIENT IN BED, OFFERED LUNCH TRAY BUT REFUSED. PT REQUESTED FOR SANDWICH. SANDWICH PROVIDED. PATIENT IS STILL COMPLAINING OF GENERALIZED BODY NUMBNESS AND WEAKNESS. NO ACUTE RESP DISTRESS NOTED. IV INTACT, NO REDNESS OR INFILTRATION NOTED. NO C/O PAIN AT THIS TIME. SAFETY PRECAUTION IN PLACE. CALL LIGHT WITHIN REACH. WILL CONTINUE TO MONITOR.
[2019-10-14 12:40] VITALS: BP 117/81
--- NOTE | 2019-10-14 13:09 | NUR ---
GERHARD ORDOÑEZ MADE AWARE OF PATIENT REQUEST FOR ENSURE. PER GERHARD ORDOÑEZ, SHE WILL PUT THE ORDER IN FOR ENSURE. WILL NOTIFY PATIENT. WILL CONTINUE TO MONITOR.
--- NOTE | 2019-10-14 13:31 | NUR ---
PATIENT COMPLAINING OF NECK PAIN. NORCO PO GIVEN PRESCRIBED. PT ALSO COMPLAINING OF ANXIETY AND REQUESTS MEDICATION. ATIVAN 1MG PO GIVEN. WILL CONTINUE TO MONITOR.
--- NOTE | 2019-10-14 14:51 | NUR ---
SPOKE WITH CASE MANAGEMENT REGARDING SNF VS HOME HEALTH PLACEMENT FOR PATIENT. PER CASE MANAGEMENT, UPON REVIEWING PATIENT FILE AND PT ASSESSMENT, PATIENT IS NOT A CANDIDATE FOR SNF PLACEMENT AT THIS TIME. WILL CONTINUE TO MONITOR.
--- NOTE | 2019-10-14 15:30 | NUR ---
PATIENT IN BED, STABLE. NO ACUTE RESPIRATORY DISTRESS NOTED. NO COMPLAINTS OF PAIN AT THIS TIME. SOFT CERVICAL COLLAR REMAINS IN PLACE. PER PATIENT, SHE STILL FEELS GENERALIZED WEAKNESS AND NUMBNESS. SAFETY PRECAUTION IN PLACE. IV INTACT, NO INFILTRATION NOTED. CALL LIGHT WITHIN REACH. WILL CONTINUE TO MONITOR.
[2019-10-14 16:40] VITALS: BP 116/63
--- NOTE | 2019-10-14 18:25 | NUR ---
PATIENT IN BED, STABLE. NO ACUTE RESP DISTRESS NOTED. REMAINS ON ROOM AIR. NO C/O PAIN OR ANXIETY AT THIS TIME. IV INTACT, NO REDNESS OR INFILTRATION NOTED. SAFETY PRECAUTION IN PLACE. CALL LIGHT WITHIN REACH. WILL ENDORSE CARE TO DENTIST ATTENDANT NURSE.
--- NOTE | 2019-10-14 19:15 | NUR ---
REPORT RECEIVED FROM DAY SHIFT RN. PATIENT WAS SEEN RESTING COMFORTABLY IN BED. NO DISTRESS NOTED. BREATHING EVEN AND UNLABORED ON ROOM AIR. NO SOB OR RESP DISTRESS NOTED. DENIES CHEST PAIN/PRESSURE. NO C/O PAIN. IV TO THE RAC INFUSING WELL. PATENT AND INTACT. NO REDNESS OR SWELLING NOTED. SOFT CERVICAL COLLAR IN PLACE. CONTACT PRECAUTIONS IN PLACE FOR + MRSA IN NARES. COMFORT AND SAFETY MEASURES IN PLACE. BED IS LOCKED AND IN THE LOWEST POSITION. SIDE RAILS UP X2. CALL LIGHT IS WITHIN REACH. WILL CONTINUE TO MONITOR.
[2019-10-14 20:49] VITALS: BP 122/63
--- NOTE | 2019-10-15 00:20 | NUR ---
RESTING IN BED W/ EYES CLOSED. NO DISTRESS NOTED. BREATHING EVEN AND UNLABORED. NO S/S OF PAIN. SAFETY MEASURES IN PLACE. CALL LIGHT IS WITHIN REACH. WILL CONTINUE TO MONITOR.
--- NOTE | 2019-10-15 02:02 | NUR ---
RESTING IN BED WITH EYES CLOSED. NO APPARENT DISTRESS NOTED. BREATHING EVEN AND UNLABORED. NO S/S OF PAIN. SAFETY MEASURES IN PLACE. CALL LIGHT IS WITHIN REACH. WILL CONTINUE TO MONITOR.
[2019-10-15 05:49] VITALS: BP 104/63
--- NOTE | 2019-10-15 06:11 | NUR ---
RESTING IN LONG INTERVALS THROUGHOUT THE NIGHT. NO ACUTE CHANGES NOTED. NO DISTRESS NOTED. BREATHING EVEN AND UNLABORED ON ROOM AIR. NO C/O PAIN AT THIS TIME. DENIES CP. ALL NEEDS AND CONCERNS ADDRESSED. SAFETY MEASURES IN PLACE. CALL LIGHT IS WITHIN REACH. WILL ENDORSE CARE TO DAY SHIFT RN.
--- NOTE | 2019-10-15 07:45 | NUR ---
RECEIVED PT IN BED, ASSESSED AND DOCUMENTED. PT IS SLEEPING THIS TIME, EASILY AROUSABLE. STABLE. DENIES PAIN THIS TIME. SAFTEY PRECAUTIONS ARE IN PLACE. WILL MONITOR.
[2019-10-15 08:45] VITALS: BP 119/74
--- NOTE | 2019-10-15 10:04 | NUR ---
PT IS CRYING AND SAYING SHE CANNOT FEEL HER BODY AND SHE HAS PAIN IN HER NECK,5/10 AND ANXIOUS. NORCO PO 5/325 AND ATIVAN 1MG PO GIVEN ORDERED. V/S STABLE. WILL MONITOR.
--- NOTE | 2019-10-15 11:04 | NUR ---
PT IS SLEEPING THIS TIME. STABLE. DENIES ANY PAIN.
[2019-10-15 12:27] VITALS: BP 92/53
--- NOTE | 2019-10-15 14:32 | NUR ---
PHYSICAL THERAPY DAILY NOTES CO-SIGN All documentation done by the Lab Support Service Tech for 10/15/19 has been reviewed. I agree with the documentation. Reviewed/Co-Signed by: Grace Wilson PT Documentation Done by:SHELLY TORRES PTA
--- NOTE | 2019-10-15 15:54 | NUR ---
PT IS CRYING AND SAID SHE JUST WENT TO THE BATHROOM AND SHE HAS PAIN IN HER NECK,5/10 AND ANXIOUS. NORCO PO 5/325 AND ATIVAN 1MG PO GIVEN ORDERED. V/S STABLE. WILL MONITOR.
[2019-10-15 16:23] VITALS: BP 104/69
--- NOTE | 2019-10-15 16:55 | NUR ---
PT RESTING IN BED, SLEEPING THIS TIME. DENIES ANY PAIN. STABLE.
--- NOTE | 2019-10-15 19:10 | NUR ---
PT RESTING IN BED COMFORTABLY, DENIES ANY PAIN. STABLE. GAVE REPORT TO GEOPHYSICIST NURSE. FOUND BAG OF PT'S MEDICINE AT BEDSIDE, GAVE TO GEOPHYSICIST NURSE TO NOTE DOWN THE NAME OF MED AND SEND TO PHARMACY.
--- NOTE | 2019-10-15 21:27 | NUR ---
Awake and verbally responsive. No respiratory distress noted on room air. Denies n/v. No cues of pain. Contact isolation observed. Will cont.to monitor. Call light within reach.
[2019-10-15 21:32] VITALS: BP 115/77
--- NOTE | 2019-10-16 04:10 | NUR ---
Asleep at this time. No significant change in condition noted. No cues of pain noted at this time. Contact isolation MRSA (+)nares, proper use of PPE and good hand hygiene observed. Afebrile.
[2019-10-16 05:10] VITALS: BP 101/61
--- NOTE | 2019-10-16 07:25 | NUR ---
RECEIVED PT FROM WEB SERVICES DEVELOPER. PT AWAKE, ALERT A/OX4. PT ON ROOM AIR WITH NO RESP DISTRESS NOTED. IV ACCESS RAC, CDI SALINE LOCKED. PERIPHERAL PULSES PALPABLE, NO EDEMA NOTED. ACTIVE BS NOTED, PT STATES SHE HAS NOT HAD A BM IN "8 DAYS". PT STATES SHE CANNOT FEEL ANYTHING AND HAS SENSORY DEPRIVATION. ABLE TO MOVE ALL EXTREMITIES WITH EASE. PT HAS CERVICAL COLLAR TO NECK, STATES PAIN IS 6/10. WILL MEDICATE. PT SHOWING SIGNS OF ANXIETY. PT STATES SHE HAS PTSD. PT NOTED TO HAVE GENERALIZED WEAKNESS. SAFETY MEASURES IN PLACE, BED LOW AND LOCKED. CALL LIGHT WITHIN REACH.
--- NOTE | 2019-10-16 08:43 | NUR ---
PT REPORTS FEELING VERY ANXIOUS, ASKING FOR ATIVAN. MED ADMINISTERED ORDERED PRN. WILL MONITOR.
[2019-10-16 08:44] VITALS: BP 140/118
--- NOTE | 2019-10-16 09:16 | NUR ---
P.T. NOTES PATIENT REFUSED TO BE SEEN, STATES NOT FEELING AND WELL AND UNABLE TO DO GIVEN TASKS.
--- NOTE | 2019-10-16 09:22 | NUR ---
PT STATES SHE HAS PAIN 6/10 IN NECK, ASKING FOR NORCO. MED ADMINISTERED ORDERED PRN (SEE EMAR). PT SHOWING MARKED ANXIETY STATING SHE HAS SENSORY PERCEPTION ISSUES. PT ASKING TO CALL DR DELAROSA FOR EXTRA DOSE OF SEROQUEL. WILL PAGE DR. DELAROSA. TIAGO EMBROIDERY PATTERNMAKER AWARE.
--- NOTE | 2019-10-16 10:22 | NUR ---
CALLED DR DELAROSA REGARDING PT REQUEST FOR EXTRA SEROQUEL. PER DR DELAROSA, TELEPHONE ORDER FOR SEROQUEL 100MG ONE DOSE NOW AND SEROQUEL 100MG DAILY IN ADDITION TO NIGHT DOSE.
--- NOTE | 2019-10-16 11:49 | NUR ---
SEROQUEL 100MG ADMINISTERED AT THIS TIME ORDERED. PT COMPLAINING HER "HEAD FEELS DISCONNECTED FROM MY BODY". PT ANXIOUS TO WHAT HAPPENS NEXT AND WANTS TO UNDERSTAND WHY SHE FEELS THAT WAY. WILL LET TIAGO KNOW.
--- NOTE | 2019-10-16 14:38 | NUR ---
PHYSICAL THERAPY DAILY NOTES CO-SIGN All documentation done by the Medical Operations Supervisor for 10/16/19 has been reviewed. I agree with the documentation. Reviewed/Co-Signed by: Grace Wilson PT Documentation Done by:SHELLY TORRES PTA
[2019-10-16 16:12] VITALS: BP 125/83
--- NOTE | 2019-10-16 16:14 | NUR ---
PT COMPLAINING OF PAIN TO NECK 07/14, ASKING FOR NORCO. MED ADMINISTERED ORDERED PRN (SEE EMAR) WILL MONITOR.
--- NOTE | 2019-10-16 17:01 | NUR ---
PT STATES PAIN IS 2/10 AT THIS TIME. MED EFFECTIVE. WILL CONTINUE TO MONITOR.
--- NOTE | 2019-10-16 18:23 | NUR ---
PT CRYING AT THIS TIME, SHOWING NOTED ANXIETY. ASKING FOR ATIVAN. MED ADMINISTERED PRN ORDERED (SEE EMAR). ALL NEEDS TENDED TO THROUGHOUT SHIFT. WILL CONTINUE TO MONITOR AND ENDORSE CARE TO CAGE UNLOADER.
--- NOTE | 2019-10-16 19:00 | NUR ---
RECEIVED REPORT FROM YASMANY HODGES. PT AAOX4 AND DENIES HEADACHE OR DIZZINESS AT THIS TIME. PT SEEMS A BIT ANXIOUS AND STATES "I FEEL LIKE I AM GETTING WORSE THE LONGER I AM HERE." PT WAS INFORMED THAT SHE WOULD BE D/C TOMORROW MORNING TO [facility]. PT IS MED-SURG AND DENIES CHEST PAIN OR PRESSURE AT THIS TIME. PT PULSES ARE PALPABLE AND CAP REFILL <3 SEC. PT LUNG SOUNDS ARE CTA ON RA. PT BREATHING EVEN AND UNLABORED. PT ABD SOFT AND NONDISTENDED. PT BOWEL SOUNDS ACTIVE X4. PT DENIES N/V/D AT THIS TIME. PT VOIDS FREELY WITH BRP. PT HAS GENERALIZED WEAKNESS. PT IS AMBULATORY. PT SKIN WARM, DRY, INTACT. PT IV IS PATENT, INTACT, AND SALINE-LOCKED AT THIS TIME. CALL LIGHT WITHIN REACH. BED IN LOWEST POSITION. SIDE RAILS X2 UP. WILL CONTINUE TO MONITOR.
--- NOTE | 2019-10-16 19:30 | NUR ---
PT ON THE PHONE WITH FAMILY/FRIEND. PT IS VERY UPSET THAT THEY HAVE NOT COME TO VISIT HER TODAY. SHE KEPT TELLING THEM "YOU HAVE TO COME GET ME. I DON'T WANT TO GO TO ONE OF THOSE PLACES AGAIN." PT THEN USED THE BATHROOM AND RETURNED TO BED. WILL CONTINUE TO MONITOR.
[2019-10-16 20:27] VITALS: BP 134/93
--- NOTE | 2019-10-16 22:35 | NUR ---
PT SLEEPING. PT BREATHING EVEN AND UNLABORED. NO ACUTE DISTRESS NOTED AT THIS TIME. CALL LIGHT WITHIN REACH. BED IN LOWEST POSITION. SIDE RAILS X2 UP. WILL CONTINUE TO MONITOR.
--- NOTE | 2019-10-17 00:34 | NUR ---
PT SLEEPING. PT BREATHING EVEN AND UNLABORED. NO ACUTE DISTRESS NOTED. CALL LIGHT WITHIN REACH. BED IN LOWEST POSITION. SIDE RAILS X2 UP. WILL CONTINUE TO MONITOR.
--- NOTE | 2019-10-17 05:17 | NUR ---
PT SLEPT THROUGHOUT THE NIGHT. NO ACUTE DISTRESS NOTED. PT COMPLIED WITH NURSING CARE THROUGHOUT THE SHIFT. COMFORT AND SAFETY MEASURES MAINTAINED. ALL QUESTIONS AND CONCERNS ADDRESSED. WILL ENDORSE CARE TO DAY SHIFT NURSE. WILL CONTINUE TO MONITOR.
[2019-10-17 05:56] VITALS: BP 101/68
--- NOTE | 2019-10-17 08:00 | NUR ---
ALERT AND ORIENTED. BREATHING FREELY ON RA. SL TO RT AC. NO TELE. VSS. WEARING SOFT SUPPORT AROUND NECK. PT COMPLAINS SHE CANT USE HER HANDS ALTHOUGH SHE DOES USE HER PHONE AND EATING UTENSILS. CONTACT ISOLATIONN FOR MRSA TO NARES. DENIES NEED FOR PAIN MED AT THIS TIME. CALL LIGHT WITHIN REACH. GETS UP TO BR ONHER OWN.
[2019-10-17 08:41] VITALS: BP 109/78
--- NOTE | 2019-10-17 10:03 | NUR ---
REPORT GIVEN TO YASMANY AT [facility]. PT GOING TO RM # [address] AAMRO.
--- NOTE | 2019-10-17 11:00 | NUR ---
PT TRANSFERED TO [facility] BY JAY. PT SIGNED TRANSFER PAPERS. PTS HOME MEDS SENT WITH PT. IV DC'D. NO TELE.
--- NOTE | 2019-10-17 12:21 | NUR ---
PT WAS UP TO BR SMOKING BEFORE BEING TRANSFERED.
== END 2019-10-17 11:05 | DRG 756 ==
LOC: ED 22:23 → MU 10-12 01:29
PROVIDERS: Emergency Medicine; ADMIT Internal Medicine
DX: F41.9 Anxiety disorder, unspecified (principal); E83.42 Hypomagnesemia; Z98.1 Arthrodesis status; R53.1 Weakness; E87.6 Hypokalemia; E03.9 Hypothyroidism, unspecified; E78.5 Hyperlipidemia, unspecified; G47.00 Insomnia, unspecified; R32 Unspecified urinary incontinence; R15.9 Full incontinence of feces; R33.9 Retention of urine, unspecified; F39 Unspecified mood [affective] disorder; F43.10 Post-traumatic stress disorder, unspecified; Z68.25 Body mass index [BMI] 25.0-25.9, adult; Z87.891 Personal history of nicotine dependence; Z86.74 Personal history of sudden cardiac arrest; Z90.49 Acquired absence of other specified parts of digestive tract; Z82.49 Family history of ischemic heart disease and other diseases of the circulatory system
CPT/HCPCS: 82962; 84439; 97110-GP; 97530-GP; G0378; J1200; J1885; J2060; J2765; J7030; Q0092

== ENCOUNTER 2019-12-05 14:54 | Emergency (ER) | payer OTHER ==
[~2019-12-05] VITALS: Ht 170.2 cm; Wt 77.1 kg
[2019-12-05 15:04] VITALS: Ht 170.2 cm; Wt 77.1 kg
[2019-12-05 15:47] LABS: BASOPHIL % 0.3 % (0-2); PLATELET COUNT 243 x10^3mcL (130-400); RED CELL DISTRIBUTION WIDTH 15.5 % (11.5-14.5)
[2019-12-05 15:57] LABS: CALCIUM 9.1 mg/dL (8.5-10.1); CHLORIDE SERUM 99 mmol/L (98-107); CREATININE SERUM 0.8 mg/dL (0.6-1.0); GFR1 > 60 mL/min; GLUCOSE SERUM 97 mg/dL (74-106); SODIUM SERUM 134 mmol/L (136-145)
[2019-12-05 16:02] LABS: ALBUMIN 3.7 g/dL (3.4-5.0); ALKALINE PHOSPHATASE 108 U/L (46-116); ALT/SGPT 27 U/L (14-59); AST/SGOT 7 U/L (15-37); BILIRUBIN TOTAL 0.22 mg/dL (0.20-1.00); TOTAL PROTEIN, SERUM 7.4 g/dL (6.4-8.2)
[2019-12-05] MEDS ORDERED: TRAZODONE HCL1 POW (16:27)
[2019-12-05] MEDS ORDERED: CYCLOBENZAPRINE5 MG (16:28)
[2019-12-05] MEDS ORDERED: LORAZEPAM1 POW (16:28)
[2019-12-05] MEDS ORDERED: QUETIAPINE FUMA50 M2 (16:28)
[2019-12-05 19:35] VITALS: BP 103/64
== END 2019-12-05 19:24 | disposition home or self-care (01) ==
LOC: ED 14:54
PROVIDERS: Emergency Medicine
DX: R53.1 Weakness (principal); M48.02 Spinal stenosis, cervical region; I10 Essential (primary) hypertension; Z98.890 Other specified postprocedural states
CPT/HCPCS: J1885; J2270

== ENCOUNTER 2020-01-10 19:03 | Inpatient (IN) | payer OTHER ==
[~2020-01-10] VITALS: Ht 170.2 cm; Wt 78.2 kg
[~2020-01-10 19:03] MED LIST changes: +CYCLOBENZAPRINE5 MG; +LORAZEPAM1 POW; +QUETIAPINE FUMA50 M2; +TRAZODONE HCL1 POW
[2020-01-10 19:09] VITALS: Ht 170.2 cm; Wt 78.2 kg
[2020-01-10 20:10] LABS: BASOPHIL % 0.2 % (0-2); PLATELET COUNT 276 x10^3mcL (130-400); RED CELL DISTRIBUTION WIDTH 16.4 % (11.5-14.5)
[2020-01-10 20:34] LABS: CALCIUM 9.2 mg/dL (8.5-10.1); CARBON DIOXIDE 24.8 mmol/L (21-32); CHLORIDE SERUM 103 mmol/L (98-107); GFR1 > 60 mL/min; GLUCOSE SERUM 115 mg/dL (74-106); POTASSIUM SERUM 4.1 mmol/L (3.5-5.1); SODIUM SERUM 141 mmol/L (136-145)
[2020-01-10 20:48] LABS: ALBUMIN 4.3 g/dL (3.4-5.0); ALKALINE PHOSPHATASE 116 U/L (46-116); ALT/SGPT 42 U/L (14-59); AST/SGOT 20 U/L (15-37); BILIRUBIN TOTAL 0.3 mg/dL (0.20-1.00); TOTAL PROTEIN, SERUM 7.8 g/dL (6.4-8.2)
[2020-01-10] MEDS ORDERED: TRAZODONE150 M1 PO (21:16)
[2020-01-10] MEDS ORDERED: SEROQUEL400 M1 PO (21:16)
[2020-01-10] MEDS ORDERED: SOMA250 M1 (21:17)
[2020-01-10] MEDS ORDERED: ATIVAN1 MG PO (21:17)
[2020-01-10] MEDS ORDERED: TOPROL XL25 MG PO (21:17)
[2020-01-11 00:25] VITALS: BP 121/73
[2020-01-11 00:39] LABS: CHOLESTEROL/HDL RATIO 3.2
[2020-01-11 01:36] LABS: microscopic required? NO
[2020-01-11 02:02] LABS: UA SPECIFIC GRAVITY 1.015 (1.005-1.035); urine erythrocyte NEGATIVE (NEGATIVE)
[2020-01-11 02:13] LABS: AMPHETAMINE QUAL UR NONE DETECTED (See below)
[2020-01-11 05:39] VITALS: BP 108/78
[2020-01-11 06:36] LABS: BASOPHIL % 0.1 % (0-2); PLATELET COUNT 205 x10^3mcL (130-400)
[2020-01-11 06:49] LABS: RED CELL DISTRIBUTION WIDTH 16.5 % (11.5-14.5)
[2020-01-11 06:50] LABS: CALCIUM 8.5 mg/dL (8.5-10.1); CARBON DIOXIDE 26.2 mmol/L (21-32); CHLORIDE SERUM 105 mmol/L (98-107); CREATININE SERUM 0.7 mg/dL (0.6-1.0); GFR1 > 60 mL/min; GLUCOSE SERUM 96 mg/dL (74-106); MAGNESIUM 1.9 mg/dL (1.8-2.4); PHOSPHOROUS 4.4 mg/dL (2.5-4.9); POTASSIUM SERUM 3.9 mmol/L (3.5-5.1); SODIUM SERUM 140 mmol/L (136-145)
[2020-01-11 08:58] VITALS: BP 90/49
[2020-01-11 18:45] VITALS: BP 111/77
[2020-01-11 20:05] VITALS: BP 100/59
[2020-01-12 06:02] VITALS: BP 93/58
[2020-01-12 06:15] LABS: BASOPHIL % 0.2 % (0-2); PLATELET COUNT 202 x10^3mcL (130-400)
[2020-01-12 06:17] LABS: CALCIUM 8.9 mg/dL (8.5-10.1); CARBON DIOXIDE 29.4 mmol/L (21-32); CHLORIDE SERUM 102 mmol/L (98-107); CREATININE SERUM 0.7 mg/dL (0.6-1.0); GFR1 > 60 mL/min; GLUCOSE SERUM 92 mg/dL (74-106); MAGNESIUM 1.8 mg/dL (1.8-2.4); PHOSPHOROUS 3.9 mg/dL (2.5-4.9); POTASSIUM SERUM 4.1 mmol/L (3.5-5.1); SODIUM SERUM 137 mmol/L (136-145)
[2020-01-12 06:30] LABS: RED CELL DISTRIBUTION WIDTH 16.3 % (11.5-14.5)
[2020-01-12 08:45] VITALS: BP 108/62
[2020-01-12 12:02] VITALS: BP 108/62
[2020-01-12 12:40] VITALS: BP 110/60
== END 2020-01-12 13:30 | disposition home or self-care (01) | DRG 203 ==
LOC: ED 19:03 → DU 21:23 → MU 01-11 18:19
PROVIDERS: Emergency Medicine; ADMIT Family Medicine
DX: R07.89 Other chest pain (principal); M48.02 Spinal stenosis, cervical region; F39 Unspecified mood [affective] disorder; F41.9 Anxiety disorder, unspecified; F32.9 Major depressive disorder, single episode, unspecified; I10 Essential (primary) hypertension; E03.9 Hypothyroidism, unspecified; E78.5 Hyperlipidemia, unspecified; G47.00 Insomnia, unspecified; F43.10 Post-traumatic stress disorder, unspecified; Z98.1 Arthrodesis status; Z74.01 Bed confinement status; Z68.25 Body mass index [BMI] 25.0-25.9, adult; Z87.891 Personal history of nicotine dependence; Z90.49 Acquired absence of other specified parts of digestive tract; Z79.899 Other long term (current) drug therapy; Z83.3 Family history of diabetes mellitus; Z82.49 Family history of ischemic heart disease and other diseases of the circulatory system
CPT/HCPCS: 83880; 97116-GP; 97530-GP; G0378; J2060; J2405; J3010; J7030